=== PATIENT | male | born 1960 | race Caucasian/White ===

== ENCOUNTER 2018-01-17 16:19 | Emergency (ER) | payer MEDICARE, OTHER ==
[~2018-01-17] VITALS: Ht 188 cm; Wt 89.0 kg
[2018-01-17 16:51] LABS: BASOPHILS # (AUTO) 0.1 X10'3 (0-0.2); BASOPHILS % (AUTO) 0.7 % (0-1); EOSINOPHILS # (AUTO) 0.1 X10'3 (0-0.9); HEMATOCRIT 46.5 % (42.0-52.0); HEMOGLOBIN 15.8 g/dl (14.0-17.9); LYMPHOCYTES % (AUTO) 24.2 % (21-51); MEAN CORPUSCULAR HEMOGLOBIN 31.3 PG (27.0-31.0); MEAN CORPUSCULAR HGB CONC 33.9 % (33.0-36.5); MEAN CORPUSCULAR VOLUME 92.1 FL (78-98); MEAN PLATELET VOLUME 9.4 FL (7.4-10.4); MONOCYTES # (AUTO) 0.7 X10'3 (0-0.9); MONOCYTES % (AUTO) 8.2 % (2-12); NEUTROPHILS # (AUTO) 5.4 X10'3 (1.8-7.7); NEUTROPHILS % (AUTO) 65.9 % (42-75); PLATELET COUNT 204 X10'3 (140-440); RED BLOOD COUNT 5.05 X10'6 (4.70-6.10); RED CELL DISTRIBUTION WIDTH 13.9 % (11.5-14.5); WHITE BLOOD COUNT 8.1 X10'3 (4.5-11.0)
[2018-01-17 16:55] LABS: INR 1.1 INR; PARTIAL THROMBOPLASTIN TIME 26 SECONDS (22-32); PROTHROMBIN TIME 11.7 SECONDS (9.0-12.0)
[2018-01-17 16:59] LABS: ALANINE AMINOTRANSFERASE 39 U/L (12-78); ALBUMIN 3.8 G/DL (3.4-5.0); ALBUMIN/GLOBULIN RATIO 1.1 (1.1-1.5); ALKALINE PHOSPHATASE 62 IU/L (46-116); ANION GAP 11 (8-16); ASPARTATE AMINO TRANSFERASE 19 U/L (10-37); BILIRUBIN,TOTAL 0.7 MG/DL (0.1-1.0); BLOOD UREA NITROGEN 16 MG/DL (7-18); BUN/CREATININE RATIO 15.5 (5.4-32.0); CALCIUM 8.8 MG/DL (8.5-10.1); CHLORIDE 107 MMOL/L (99-107); CREATININE 1.03 MG/DL (0.60-1.10); GLUCOSE 110 MG/DL (70-104); POTASSIUM 3.9 MMOL/L (3.5-5.1); SODIUM 140 MMOL/L (135-145); TOTAL CARBON DIOXIDE 21.7 MMOL/L (24-32); TOTAL PROTEIN 7.4 G/DL (6.4-8.2); eGFR 74 ML/MIN
[2018-01-17 18:34] VITALS: BP 147/81
== END 2018-01-17 18:37 | disposition home or self-care (01) ==
LOC: ER 16:20
DX: R51 Headache (principal); I10 Essential (primary) hypertension; I25.2 Old myocardial infarction; F17.200 Nicotine dependence, unspecified, uncomplicated; Z88.2 Allergy status to sulfonamides
CPT/HCPCS: 36415; 71045; 80053; 84484; 85025; 85610; 85730; 99285

== ENCOUNTER 2019-01-28 17:25 | Observation (INO) | payer MEDICARE, OTHER ==
[~2019-01-28] VITALS: Ht 185.4 cm; Wt 100.0 kg
[2019-01-28 18:13] LABS: BASOPHILS # (AUTO) 0.1 X10'3 (0-0.2); BASOPHILS % (AUTO) 1.3 % (0-1); EOSINOPHILS # (AUTO) 0.2 X10'3 (0-0.9); HEMATOCRIT 41.1 % (42.0-52.0); HEMOGLOBIN 13.8 g/dl (14.0-17.9); LYMPHOCYTES # (AUTO) 2.6 X10'3 (1.1-4.8); LYMPHOCYTES % (AUTO) 33.8 % (21-51); MEAN CORPUSCULAR HEMOGLOBIN 30.6 PG (27.0-31.0); MEAN CORPUSCULAR HGB CONC 33.6 g/dL (33.0-36.5); MEAN CORPUSCULAR VOLUME 91.2 FL (78-98); MEAN PLATELET VOLUME 8.9 FL (7.4-10.4); MONOCYTES # (AUTO) 0.8 X10'3 (0-0.9); MONOCYTES % (AUTO) 10.4 % (2-12); NEUTROPHILS # (AUTO) 4.1 X10'3 (1.8-7.7); NEUTROPHILS % (AUTO) 52.5 % (42-75); PLATELET COUNT 193 X10'3 (140-440); RED BLOOD COUNT 4.51 X10'6 (4.70-6.10); RED CELL DISTRIBUTION WIDTH 13.3 % (11.5-14.5); WHITE BLOOD COUNT 7.8 X10'3 (4.5-11.0)
[2019-01-28 18:30] LABS: ALANINE AMINOTRANSFERASE 20 U/L (12-78); ALBUMIN 3.8 G/DL (3.4-5.0); ALBUMIN/GLOBULIN RATIO 1.4 (1.1-1.5); ALKALINE PHOSPHATASE 52 IU/L (46-116); ANION GAP 9 (8-16); ASPARTATE AMINO TRANSFERASE 14 U/L (10-37); BILIRUBIN,TOTAL 0.3 MG/DL (0.1-1.0); BLOOD UREA NITROGEN 15 MG/DL (7-18); BUN/CREATININE RATIO 19.2 (5.4-32.0); CALCIUM 8.9 MG/DL (8.5-10.1); CHLORIDE 106 MMOL/L (99-107); CREATININE 0.78 MG/DL (0.60-1.10); GLUCOSE 88 MG/DL (70-104); POTASSIUM 4.1 MMOL/L (3.5-5.1); SODIUM 140 MMOL/L (135-145); TOTAL CARBON DIOXIDE 25.5 MMOL/L (24-32); TOTAL PROTEIN 6.6 G/DL (6.4-8.2); eGFR > 90 ML/MIN
--- NOTE | 2019-01-28 18:32 | NUR ---
relieving RN for lunch, pt is resting quietly on jocelyn, daughter at bedside, pt c/o midsternal chest pain, nonradiating, +nausea "I think it is anxiety...i feel anxious" pt also c/o bilateral knee pain, has appt with [facility] 02/17/19, waiting for lab results
[2019-01-28 18:36] LABS: MAGNESIUM 2.2 MG/DL (1.5-2.4)
[2019-01-28 20:27] LABS: D-DIMER 1.62 MG/L FEU (0-0.50)
[2019-01-28 20:44] LABS: URINE AMPHETAMINE SCREEN NEGATIVE (Neg); URINE BARBITUATE SCREEN NEGATIVE (Neg); URINE BENZODIAZEPINES SCREEN POSITIVE (Neg); URINE CANNABINOID SCREEN NEGATIVE (Neg); URINE COCAINE SCREEN NEGATIVE (Neg); URINE METHADONE SCREEN NEGATIVE (Neg); URINE OPIATE SCREEN POSITIVE (Neg); URINE PHENCYCLIDINE SCREEN NEGATIVE (Neg)
[2019-01-28 20:53] LABS: CLARITY,URINE CLEAR (Clear); COLOR,URINE STRAW (Yellow); GLUCOSE, URINE NEGATIVE (Neg); KETONES,URINE NEGATIVE (Neg); LEUKOCYTE ESTERASE ,URINE NEGATIVE (Neg); NITRITES, URINE NEGATIVE (Neg); OCCULT BLOOD,URINE NEGATIVE (Neg); PROTEIN,URINE NEGATIVE (Neg); UROBILINOGEN,URINE 0.2 E.U/dL (0.2-1.0)
[2019-01-28 21:00] LABS: UA COLLECTION TYPE CLN CATCH MIDSTREAM
--- NOTE | 2019-01-28 21:10 | NUR ---
PATIENT STATES THAT HE IS GOING THRU A LOT OF STRESSORS IN HIS LIFE INCLUDING "BAD KNEES" HE WAS RECENTLY PRESCRIBED XANAX ON 01/17/[address] ABARCA
[2019-01-28] MEDS ORDERED: iohexol 350MG/ML 100ml bottle IV ONE (21:26)
[2019-01-28] MEDS ORDERED: aminophylline 250mg/10ml inj. IV PRN (21:45)
[2019-01-28] MEDS ORDERED: mag hydrox/Alum hydrox/simeth 30ml oral suspension PO PRN (21:45)
[2019-01-28] MEDS ORDERED: regadenoson 0.4mg/5ml syringe IV PRN (21:45)
[2019-01-28] MEDS ORDERED: magnesium 4gm in 100ml NS 100 ML IV PRN (21:45)
[2019-01-28] MEDS ORDERED: acetaminophen 325mg tablet PO PRN ×2 (21:45)
[2019-01-28] MEDS ORDERED: magnesium Cl slow-release 64mg tablet PO PRN (21:45)
[2019-01-28] MEDS ORDERED: magnesium 2GM in 50ml NS 50 ML IV PRN (21:45)
[2019-01-28] MEDS ORDERED: metoprolol tartrate 1mg/ml inj IV PRN (21:45)
[2019-01-28] MEDS ORDERED: magnesium hydroxide 30ml (MOM) UD suspension PO PRN (21:45)
[2019-01-28] MEDS ORDERED: ondansetron/PF 4mg/2ml inj IV PRN (21:45)
[2019-01-28] MEDS ORDERED: potassium Cl 20 mEq SR tablet PO PRN ×2 (21:45)
[2019-01-28] MEDS ORDERED: potassium Cl 40MEQ/NS 500ml 500 ML IV PRN ×2 (21:45)
[2019-01-28] MEDS ORDERED: nitroGLYCERIN 0.4mg SUBLingual tab SL PRN ×2 (21:45)
--- NOTE | 2019-01-28 22:06 | NUR ---
TO CT SCAN
[2019-01-29] VITALS (10 sets, daily range): BP systolic 112–178; BP diastolic 62–82
--- NOTE | 2019-01-29 03:21 | NUR ---
PT APPEARS TO BE SLEEPING, IN NO ACUTE DISTRESS.
[2019-01-29] MEDS ORDERED: enoxaparin 40mg/0.4ml syringe SQ SCH (08:00)
[2019-01-29] MEDS ORDERED: aspirin 81mg tablet.DR PO SCH (08:00)
[2019-01-29] MEDS ORDERED: K and/or MAG REPLACEMENT MC SCH (08:00)
[2019-01-29] MEDS ORDERED: PROP10TA10 PO (09:02)
[2019-01-29] MEDS ORDERED: VENL75CA61 PO (09:02)
[2019-01-29] MEDS ORDERED: MELO-102 PO (09:02)
[2019-01-29] MEDS ORDERED: BUSP7.5T4 PO (09:02)
[2019-01-29] MEDS ORDERED: PRIM50TA42 PO (09:02)
[2019-01-29] MEDS ORDERED: ALPR0.5T9 PO (09:02)
[2019-01-29] MEDS ORDERED: LISI-643 PO (09:02)
[2019-01-29] MEDS ORDERED: MULT-1062 PO (09:03)
[2019-01-29] MEDS ORDERED: NAPR220T67 PO (09:03)
[2019-01-29] MEDS ORDERED: NITR0.4T51 SL (09:04)
--- NOTE | 2019-01-29 09:15 | NUR ---
Pt arrived to unit. Introduced self to patient. Oriented pt to room, bed is low/locked/SRx2, call light in reach. Will continue to monitor. PT NPO at this time for Wandy.
[2019-01-29 09:18] LABS: BASOPHILS # (AUTO) 0.1 X10'3 (0-0.2); BASOPHILS % (AUTO) 0.9 % (0-1); EOSINOPHILS # (AUTO) 0.1 X10'3 (0-0.9); EOSINOPHILS % (AUTO) 1.4 % (0-6); HEMATOCRIT 42.5 % (42.0-52.0); HEMOGLOBIN 14.3 g/dl (14.0-17.9); LYMPHOCYTES # (AUTO) 1.9 X10'3 (1.1-4.8); LYMPHOCYTES % (AUTO) 26.7 % (21-51); MEAN CORPUSCULAR HEMOGLOBIN 30.8 PG (27.0-31.0); MEAN CORPUSCULAR HGB CONC 33.7 g/dL (33.0-36.5); MEAN CORPUSCULAR VOLUME 91.4 FL (78-98); MEAN PLATELET VOLUME 9.3 FL (7.4-10.4); MONOCYTES # (AUTO) 0.8 X10'3 (0-0.9); MONOCYTES % (AUTO) 10.8 % (2-12); NEUTROPHILS # (AUTO) 4.2 X10'3 (1.8-7.7); NEUTROPHILS % (AUTO) 60.2 % (42-75); PLATELET COUNT 197 X10'3 (140-440); RED BLOOD COUNT 4.65 X10'6 (4.70-6.10); RED CELL DISTRIBUTION WIDTH 13.6 % (11.5-14.5)
--- NOTE | 2019-01-29 09:45 | NUR ---
Pt off unit to [facility] for Lexiscan via WC in stable condition. Pt off floor.
[2019-01-29 09:50] LABS: ALBUMIN 3.7 G/DL (3.4-5.0); ANION GAP 9 (8-16); BLOOD UREA NITROGEN 15 MG/DL (7-18); BUN/CREATININE RATIO 17.4 (5.4-32.0); CHLORIDE 105 MMOL/L (99-107); CHOL/HDL RATIO 4.7 (0.00-4.99); CHOLESTEROL 191 MG/DL (0-200); CREATININE 0.86 MG/DL (0.60-1.10); GLUCOSE 107 MG/DL (70-104); HDL CHOLESTEROL 41 MG/DL (35-60); MAGNESIUM 2.2 MG/DL (1.5-2.4); POTASSIUM 4.2 MMOL/L (3.5-5.1); SODIUM 141 MMOL/L (135-145); TOTAL CARBON DIOXIDE 26.9 MMOL/L (24-32); TRIGLYCERIDES 169 MG/DL (20-135); eGFR > 90 ML/MIN
[2019-01-29 09:51] LABS: LDL CHOLESTEROL 121 MG/DL (50-100)
--- NOTE | 2019-01-29 09:55 | NUR ---
Notified Dr Jones of patient's elevated BP 178/80, no CP, HR 60. Pt currently off unit for Lexiscan. Per Dr Jones, please recheck BP when patient comes back to unit and notify
[2019-01-29] MEDS ORDERED: aminophylline inj. 10 ML IV ONE (09:56)
[2019-01-29] MEDS ORDERED: regadenoson 0.4mg/5ml syringe IV ONE (09:56)
[2019-01-29] MEDS ORDERED: atorvastatin 20mg tablet PO SCH (10:00)
--- NOTE | 2019-01-29 11:43 | NUR ---
PAGER ID: [phone] MESSAGE: Natalya Rayo, [id number] Carlos Banks BP 168/95, HR 81 s/p Trudy.
--- NOTE | 2019-01-29 12:38 | NUR ---
PAGER ID: [phone] MESSAGE: [id number] Carlos Banks resulted. Proceeding with discharge. Natalya, [phone]
--- NOTE | 2019-01-29 13:25 | NUR ---
Paged hospitalist "Nabila [phone]- [phone] May patient eat lunch with negative Lexiscan?"
--- NOTE | 2019-01-29 13:28 | NUR ---
Received callback from Dr. Jones, received orders for heart healthy diet and for nursing staff to walk patient to observe HR & SPO2. Plan to d/c patient if WNL.
[2019-01-29] MEDS ORDERED: ATOR20TA66 PO (13:29)
--- NOTE | 2019-01-29 14:34 | NUR ---
Paged hospitalist, "Nabila [phone] Please call (nonemergent)" Wish to make her aware that patient SPO2 and HR WNL. Asked for 1 x Meloxicam 15 mg po for pain.
[2019-01-29] MEDS ORDERED: naproxen 500mg tablet PO ONE (14:40)
--- NOTE | 2019-01-29 17:46 | NUR ---
2 IVs removed, catheters intact. Telemetry device removed, returned to tele. Pt discharged in stable condition via wheelchair. 2 bags of belongings including cell phone, wallet, and glasses. Discharge packet with patient. Discharged into the care of his daughter, left via private vehicle.
== END 2019-01-29 17:40 | disposition home or self-care (01) ==
LOC: ER 17:26 → ED HOLD 21:42 → PCU 3S 01-29 09:01
PROVIDERS: ADMIT Hospitalist; ATTEND Internal Medicine
DX: R07.2 Precordial pain (principal); I25.2 Old myocardial infarction; I10 Essential (primary) hypertension; E78.00 Pure hypercholesterolemia, unspecified; F41.9 Anxiety disorder, unspecified; F17.210 Nicotine dependence, cigarettes, uncomplicated; Z82.49 Family history of ischemic heart disease and other diseases of the circulatory system; Z86.711 Personal history of pulmonary embolism; Z86.718 Personal history of other venous thrombosis and embolism; Z95.1 Presence of aortocoronary bypass graft
CPT/HCPCS: 36415; 71045; 71275; 78452; 80048; 80053; 80061; 80305; 81003; 83735; 83880; 84484; 85025; 85379; 87070; 93005; 93017; 96372; 99284; A9500; G0378; J0280; Q9967; J1650

== ENCOUNTER 2019-03-16 22:50 | Emergency (ER) | payer MEDICARE ==
[~2019-03-16] VITALS: Ht 185.4 cm; Wt 96.4 kg
[~2019-03-16 22:50] MED LIST: ALPR0.5T9 PO; ATOR20TA66 PO; BUSP7.5T4 PO; LISI-643 PO; MULT-1062 PO; NAPR220T67 PO; NITR0.4T51 SL; PRIM50TA42 PO; VENL75CA61 PO
[2019-03-16] MEDS ORDERED: DICL100G15 TOP (23:13)
[2019-03-16] MEDS ORDERED: ketorolac trometh. 30mg/ml inj. IM ONE (23:15)
[2019-03-17 00:01] VITALS: BP 104/62
--- NOTE | 2019-03-17 00:18 | NUR ---
FELIPE FLETCHER CALLED FOR PT, HE WILL PAY FOR CAB [facility] ARE UNABLE TO PROVIDE TRANSPORT HOME.
== END 2019-03-17 01:44 | disposition home or self-care (01) ==
LOC: ER 22:50
DX: M25.561 Pain in right knee (principal); M25.562 Pain in left knee; E78.00 Pure hypercholesterolemia, unspecified; I10 Essential (primary) hypertension; I25.2 Old myocardial infarction; M19.90 Unspecified osteoarthritis, unspecified site; Z86.718 Personal history of other venous thrombosis and embolism; Z86.711 Personal history of pulmonary embolism; Z95.1 Presence of aortocoronary bypass graft; Z88.2 Allergy status to sulfonamides; Z79.899 Other long term (current) drug therapy
CPT/HCPCS: 96372; 99284; J1885

== ENCOUNTER 2019-03-31 13:26 | Observation (INO) | payer MEDICARE, OTHER ==
[~2019-03-31] VITALS: Ht 188 cm; Wt 98.0 kg
[~2019-03-31 13:26] MED LIST changes: +DICL100G15 TOP
[2019-03-31] MEDS ORDERED: normal saline 1000ML IV soln IVB ONE (13:30)
--- NOTE | 2019-03-31 13:56 | NUR ---
REPOPRT TO PRIMARY RN BELINDA
--- NOTE | 2019-03-31 14:05 | NUR ---
UPDATED DR. AMAYA THAT PT FOUND DOWN PER [facility]. O2 AND ST CATH AT BEDSIDE.
[2019-03-31 14:06] LABS: BASOPHILS # (AUTO) 0.1 X10'3 (0-0.2); EOSINOPHILS # (AUTO) 0.1 X10'3 (0-0.9); HEMATOCRIT 41.1 % (42.0-52.0); HEMOGLOBIN 13.9 g/dl (14.0-17.9); LYMPHOCYTES % (AUTO) 30.9 % (21-51); MEAN CORPUSCULAR HEMOGLOBIN 31.2 PG (27.0-31.0); MEAN CORPUSCULAR HGB CONC 33.7 g/dL (33.0-36.5); MEAN CORPUSCULAR VOLUME 92.4 FL (78-98); MONOCYTES # (AUTO) 0.6 X10'3 (0-0.9); MONOCYTES % (AUTO) 9.6 % (2-12); NEUTROPHILS # (AUTO) 3.6 X10'3 (1.8-7.7); NEUTROPHILS % (AUTO) 56.5 % (42-75); PLATELET COUNT 192 X10'3 (140-440); RED BLOOD COUNT 4.44 X10'6 (4.70-6.10); RED CELL DISTRIBUTION WIDTH 13.5 % (11.5-14.5); WHITE BLOOD COUNT 6.4 X10'3 (4.5-11.0)
--- NOTE | 2019-03-31 14:06 | NUR ---
#[phone]. PT DAUGHTER CAME HOME, KNEW HE SLEEPING ON THE COUCH, SHE HEARD A THUD, HE FALL ON HIS FACE. UNRESPONSIVE, BUT BREATHING. 911
[2019-03-31] MEDS ORDERED: PROP10TA10 PO (14:24)
[2019-03-31] MEDS ORDERED: MELO-102 PO (14:24)
[2019-03-31] MEDS ORDERED: ATOR20TA66 PO (14:24)
--- NOTE | 2019-03-31 14:24 | NUR ---
got disconnected from poison control, calling back
[2019-03-31 14:27] LABS: ACETAMINOPHEN < 2.0 UG/ML (10-30); ALANINE AMINOTRANSFERASE 25 U/L (12-78); ALBUMIN 3.5 G/DL (3.4-5.0); ALBUMIN/GLOBULIN RATIO 1.3 (1.1-1.5); ALKALINE PHOSPHATASE 46 IU/L (46-116); ANION GAP 5 (8-16); ASPARTATE AMINO TRANSFERASE 15 U/L (10-37); BILIRUBIN,TOTAL 0.4 MG/DL (0.1-1.0); BLOOD UREA NITROGEN 10 MG/DL (7-18); BUN/CREATININE RATIO 11.5 (5.4-32.0); CALCIUM 8.8 MG/DL (8.5-10.1); CHLORIDE 108 MMOL/L (99-107); CREATININE 0.87 MG/DL (0.60-1.10); ETHANOL < 0.010 GM/DL (0.0-0.010); GLUCOSE 89 MG/DL (70-104); SODIUM 141 MMOL/L (135-145); TOTAL CARBON DIOXIDE 27.6 MMOL/L (24-32); TOTAL PROTEIN 6.3 G/DL (6.4-8.2); eGFR 90 ML/MIN
--- NOTE | 2019-03-31 14:27 | NUR ---
past peek effects of xanax, mobic precaution, get baseline cbc, tylenol, asa, bc category nsaids, metabolic acidosis, gi, kidney damage, repeat cbc in 4 hours. Fluids, 1 liters. Keny, pharmacist.
--- NOTE | 2019-03-31 14:32 | NUR ---
medications back to pt daughter.Pt is currently living with temporary living.
[2019-03-31 14:55] LABS: URINE AMPHETAMINE SCREEN NEGATIVE (Neg); URINE BARBITUATE SCREEN NEGATIVE (Neg); URINE BENZODIAZEPINES SCREEN POSITIVE (Neg); URINE CANNABINOID SCREEN NEGATIVE (Neg); URINE COCAINE SCREEN NEGATIVE (Neg); URINE METHADONE SCREEN NEGATIVE (Neg); URINE OPIATE SCREEN NEGATIVE (Neg); URINE PHENCYCLIDINE SCREEN NEGATIVE (Neg)
[2019-03-31] MEDS ORDERED: acetaminophen 325mg tablet PO PRN ×4 (15:30→15:35)
[2019-03-31] MEDS ORDERED: magnesium hydroxide 30ml (MOM) UD suspension PO PRN ×4 (15:30→15:35)
[2019-03-31] MEDS ORDERED: mag hydrox/Alum hydrox/simeth 30ml oral suspension PO PRN ×4 (15:30→15:35)
[2019-03-31] MEDS ORDERED: ondansetron/PF 4mg/2ml inj IV PRN ×4 (15:30→15:35)
--- NOTE | 2019-03-31 15:32 | NUR ---
pt awake, talking, tearful. reports first time trying to kill himself. Pt is living with daughter temporary, lost his house.
[2019-03-31] MEDS ORDERED: morphine 2 MG/ML inj. syringe IV PRN ×2 (15:35)
[2019-03-31] MEDS: dextrose 5%-1/2 normal saline 1,000 ML IV SCH (16:37)
[2019-03-31 17:00] LABS: BASOPHILS # (AUTO) 0.1 X10'3 (0-0.2); BASOPHILS % (AUTO) 0.7 % (0-1); EOSINOPHILS # (AUTO) 0.2 X10'3 (0-0.9); EOSINOPHILS % (AUTO) 1.8 % (0-6); HEMATOCRIT 40.5 % (42.0-52.0); HEMOGLOBIN 13.6 g/dl (14.0-17.9); LYMPHOCYTES # (AUTO) 2.1 X10'3 (1.1-4.8); LYMPHOCYTES % (AUTO) 21.9 % (21-51); MEAN CORPUSCULAR HEMOGLOBIN 31.1 PG (27.0-31.0); MEAN CORPUSCULAR HGB CONC 33.7 g/dL (33.0-36.5); MEAN CORPUSCULAR VOLUME 92.1 FL (78-98); MEAN PLATELET VOLUME 8.9 FL (7.4-10.4); MONOCYTES # (AUTO) 0.9 X10'3 (0-0.9); MONOCYTES % (AUTO) 9.3 % (2-12); NEUTROPHILS # (AUTO) 6.4 X10'3 (1.8-7.7); NEUTROPHILS % (AUTO) 66.3 % (42-75); PLATELET COUNT 192 X10'3 (140-440); RED BLOOD COUNT 4.39 X10'6 (4.70-6.10); RED CELL DISTRIBUTION WIDTH 13.7 % (11.5-14.5); WHITE BLOOD COUNT 9.7 X10'3 (4.5-11.0)
[2019-03-31 17:17] LABS: ACETAMINOPHEN < 2.0 UG/ML (10-30)
[2019-03-31] MEDS: naproxen 500mg tablet PO SCH (17:30)
--- NOTE | 2019-03-31 18:22 | NUR ---
#[phone] VIVIAN ZIMMERMAN, DAUGHTER CALLED. UPDATED ON PLAN OF CARE. WILL HERE IN MORNING.
--- NOTE | 2019-03-31 18:39 | NUR ---
Received report from ALEC Esposito from ER. Pending arrival to floor.
[2019-03-31 19:02] VITALS: BP 162/75
[2019-03-31] MEDS ORDERED: pneumococcal 23-VAL P-sac vacc 25 mcg/0.5ml vial IMVAC ONE (19:30)
[2019-03-31 20:21] VITALS: BP 127/64
[2019-03-31] MEDS: busPIRone 15mg tablet PO SCH (20:21)
[2019-03-31] MEDS: propranolol 10mg tablet PO SCH (20:21)
[2019-03-31] MEDS: HYDROcodone/acetaminophen 5mg/325mg tablet PO PRN (20:21)
[2019-03-31 22:00] VITALS: BP 127/73
[2019-04-01] MEDS: dextrose 5%-1/2 normal saline 1,000 ML IV SCH (01:49)
[2019-04-01] MEDS: HYDROcodone/acetaminophen 5mg/325mg tablet PO PRN ×4 (04:19→21:55)
[2019-04-01 05:47] LABS: BASOPHILS # (AUTO) 0.1 X10'3 (0-0.2); BASOPHILS % (AUTO) 0.8 % (0-1); EOSINOPHILS # (AUTO) 0.2 X10'3 (0-0.9); EOSINOPHILS % (AUTO) 2.9 % (0-6); HEMATOCRIT 37.8 % (42.0-52.0); HEMOGLOBIN 12.8 g/dl (14.0-17.9); LYMPHOCYTES # (AUTO) 1.9 X10'3 (1.1-4.8); LYMPHOCYTES % (AUTO) 27.4 % (21-51); MEAN CORPUSCULAR HEMOGLOBIN 31.2 PG (27.0-31.0); MEAN CORPUSCULAR HGB CONC 33.9 g/dL (33.0-36.5); MEAN CORPUSCULAR VOLUME 92.1 FL (78-98); MEAN PLATELET VOLUME 8.9 FL (7.4-10.4); MONOCYTES # (AUTO) 0.7 X10'3 (0-0.9); MONOCYTES % (AUTO) 10.4 % (2-12); NEUTROPHILS # (AUTO) 4.2 X10'3 (1.8-7.7); NEUTROPHILS % (AUTO) 58.5 % (42-75); PLATELET COUNT 173 X10'3 (140-440); RED BLOOD COUNT 4.11 X10'6 (4.70-6.10); RED CELL DISTRIBUTION WIDTH 13.6 % (11.5-14.5); WHITE BLOOD COUNT 7.1 X10'3 (4.5-11.0)
[2019-04-01 06:00] VITALS: BP 139/62
--- NOTE | 2019-04-01 06:18 | NUR ---
Patient in room ORTHO 4009. I have received report from Nafisa Poole RN and had the opportunity to ask questions and assume patient care.
--- NOTE | 2019-04-01 06:23 | NUR ---
Problems reprioritized. Patient report given, questions answered & plan of care reviewed with ALEC Doan.
[2019-04-01 07:03] LABS: ALANINE AMINOTRANSFERASE 23 U/L (12-78); ALBUMIN/GLOBULIN RATIO 1.1 (1.1-1.5); ALKALINE PHOSPHATASE 43 IU/L (46-116); ANION GAP 10 (8-16); ASPARTATE AMINO TRANSFERASE 14 U/L (10-37); BILIRUBIN,TOTAL 0.3 MG/DL (0.1-1.0); BLOOD UREA NITROGEN 13 MG/DL (7-18); BUN/CREATININE RATIO 14.8 (5.4-32.0); CALCIUM 8.3 MG/DL (8.5-10.1); CHLORIDE 107 MMOL/L (99-107); CREATININE 0.88 MG/DL (0.60-1.10); GLUCOSE 104 MG/DL (70-104); SODIUM 141 MMOL/L (135-145); TOTAL PROTEIN 5.7 G/DL (6.4-8.2); eGFR 88 ML/MIN
[2019-04-01] MEDS: busPIRone 15mg tablet PO SCH ×2 (08:00→19:36)
[2019-04-01] MEDS: primidone 50mg tablet PO SCH ×2 (08:00→09:13)
[2019-04-01] MEDS: venlafaxine XR 75mg capsule (Q24H) PO SCH (08:00)
[2019-04-01] MEDS: propranolol 10mg tablet PO SCH ×2 (08:02→19:36)
[2019-04-01] MEDS: naproxen 500mg tablet PO SCH ×2 (08:02→16:48)
[2019-04-01] MEDS: atorvastatin 20mg tablet PO SCH (08:02)
[2019-04-01] MEDS: lisinopril 10 MG tablet PO SCH (08:03)
[2019-04-01 09:50] VITALS: BP 134/59
--- NOTE | 2019-04-01 14:30 | NUR ---
Paged social welfare administrator regarding patient being transferred to Behavioral Health, still waiting for response. Also left message with Heather on Behavioral Health and left a message, waiting for call back.
[2019-04-01 18:00] VITALS: BP 159/73
--- NOTE | 2019-04-01 18:05 | NUR ---
Problems reprioritized. Patient report given, questions answered & plan of care reviewed with Nafisa Poole RN.
--- NOTE | 2019-04-01 18:23 | NUR ---
Patient in room ORTHO 4020B. I have received report from ALEC Doan and had the opportunity to ask questions and assume patient care.
--- NOTE | 2019-04-01 21:04 | NUR ---
Marco Antonio from [facility] here to evaluate patient for possible psych needs.
[2019-04-01 22:00] VITALS: BP 151/82
--- NOTE | 2019-04-01 22:32 | NUR ---
Mental Health evaluated patient and recommended that he be admitted under a 5150. Dr Colvin was notified, he said that the doctor will address it in the AM as long as he has a sitter and does not try to leave.
[2019-04-02] MEDS: HYDROcodone/acetaminophen 5mg/325mg tablet PO PRN ×2 (04:05→08:49)
[2019-04-02 06:00] VITALS: BP 122/62
--- NOTE | 2019-04-02 06:10 | NUR ---
Patient in room ORTHO 4020. I have received report from DEVON MICHAEL and had the opportunity to ask questions and assume patient care.
--- NOTE | 2019-04-02 06:22 | NUR ---
Problems reprioritized. Patient report given, questions answered & plan of care reviewed with ALEC Hudson.
[2019-04-02 07:11] LABS: BASOPHILS % (AUTO) 0.5 % (0-1); EOSINOPHILS # (AUTO) 0.2 X10'3 (0-0.9); HEMATOCRIT 39.8 % (42.0-52.0); HEMOGLOBIN 13.6 g/dl (14.0-17.9); LYMPHOCYTES # (AUTO) 1.3 X10'3 (1.1-4.8); LYMPHOCYTES % (AUTO) 12.8 % (21-51); MEAN CORPUSCULAR HEMOGLOBIN 31.3 PG (27.0-31.0); MEAN CORPUSCULAR HGB CONC 34.3 g/dL (33.0-36.5); MEAN CORPUSCULAR VOLUME 91.2 FL (78-98); MEAN PLATELET VOLUME 9.3 FL (7.4-10.4); MONOCYTES # (AUTO) 0.9 X10'3 (0-0.9); MONOCYTES % (AUTO) 8.3 % (2-12); NEUTROPHILS # (AUTO) 7.8 X10'3 (1.8-7.7); NEUTROPHILS % (AUTO) 76.4 % (42-75); PLATELET COUNT 176 X10'3 (140-440); RED BLOOD COUNT 4.36 X10'6 (4.70-6.10); RED CELL DISTRIBUTION WIDTH 13.1 % (11.5-14.5); WHITE BLOOD COUNT 10.2 X10'3 (4.5-11.0)
[2019-04-02] MEDS: venlafaxine XR 75mg capsule (Q24H) PO SCH (07:11)
[2019-04-02] MEDS: naproxen 500mg tablet PO SCH (07:11)
[2019-04-02] MEDS: lisinopril 10 MG tablet PO SCH (07:11)
[2019-04-02] MEDS: primidone 50mg tablet PO SCH (07:12)
[2019-04-02] MEDS: busPIRone 15mg tablet PO SCH (07:12)
[2019-04-02] MEDS: propranolol 10mg tablet PO SCH (07:12)
[2019-04-02] MEDS: atorvastatin 20mg tablet PO SCH (07:12)
[2019-04-02 07:31] LABS: ALANINE AMINOTRANSFERASE 22 U/L (12-78); ALBUMIN 3.3 G/DL (3.4-5.0); ALBUMIN/GLOBULIN RATIO 1.1 (1.1-1.5); ALKALINE PHOSPHATASE 55 IU/L (46-116); ANION GAP 9 (8-16); ASPARTATE AMINO TRANSFERASE 15 U/L (10-37); BILIRUBIN,TOTAL 0.5 MG/DL (0.1-1.0); BLOOD UREA NITROGEN 12 MG/DL (7-18); BUN/CREATININE RATIO 15.6 (5.4-32.0); CALCIUM 8.4 MG/DL (8.5-10.1); CHLORIDE 107 MMOL/L (99-107); CREATININE 0.77 MG/DL (0.60-1.10); GLUCOSE 106 MG/DL (70-104); POTASSIUM 3.8 MMOL/L (3.5-5.1); SODIUM 141 MMOL/L (135-145); TOTAL CARBON DIOXIDE 25.5 MMOL/L (24-32); TOTAL PROTEIN 6.2 G/DL (6.4-8.2); eGFR > 90 ML/MIN
[2019-04-02 10:00] VITALS: BP 139/81
[2019-04-02] MEDS ORDERED: HYDROcodone/acetaminophen 10/325mg tab PO ONE (10:05)
[2019-04-02] MEDS ORDERED: HYDROcodone/acetaminophen 10/325mg tab PO PRN ×2 (10:05)
--- NOTE | 2019-04-02 11:48 | NUR ---
PAGER ID: [phone] MESSAGE: NARCISA [phone] RE: SEVERIANO [id number] PT GOING CB AT 1300, DOES HE NEED PAIN MEDS ON DC MED[facility]? NONE ON THERE.
--- NOTE | 2019-04-02 13:00 | NUR ---
PATIENT DISCHARGED. BROUGHT DOWN BY WHEELCHAIR TO [facility]. REPORT GIVEN TO ONCOMING RN.
[2019-04-02] MEDS ORDERED: DICL100G30 TOP (14:35)
== END 2019-04-02 13:00 | disposition other institution, planned readmission (95) ==
LOC: ER 13:26 → EDBEDREQ 18:19 → ORTHO 4S 18:59 → INTOOBSV 18:59 → CMPBEDREQ 19:42 → ORTHO 4S 21:03
PROVIDERS: ADMIT Internal Medicine; ATTEND Internal Medicine
DX: T42.4X2A Poisoning by benzodiazepines, intentional self-harm, initial encounter (principal); F32.9 Major depressive disorder, single episode, unspecified; F41.9 Anxiety disorder, unspecified; I10 Essential (primary) hypertension; E78.00 Pure hypercholesterolemia, unspecified; E78.5 Hyperlipidemia, unspecified; F17.210 Nicotine dependence, cigarettes, uncomplicated; Y93.89 Activity, other specified; Y92.009 Unspecified place in unspecified non-institutional (private) residence as the place of occurrence of the external cause; Z79.899 Other long term (current) drug therapy; Z95.1 Presence of aortocoronary bypass graft; Z23 Encounter for immunization
CPT/HCPCS: 36415; 71045; 80053; 80305; 80320; 80329; 82948; 85025; 87070; 90471; 90732; 93005; 96374; 99284; G0378; J2270; 96365; 99285

== ENCOUNTER 2019-07-22 17:09 | Emergency (ER) | payer MEDICARE, MEDICAID ==
[~2019-07-22] VITALS: Ht 185.4 cm; Wt 97.3 kg
[~2019-07-22 17:09] MED LIST changes: +BUS15T PO; -BUSP7.5T4 PO; -DICL100G15 TOP; +DICL100G30 TOP; +DULO30CA52 PO; +HYDR-3686 PO; +MELO-102 PO; -NITR0.4T51 SL; +PRIM50TA3 PO; -PRIM50TA42 PO; +PROP10TA10 PO; +TRAZ-251 PO; -VENL75CA61 PO
[2019-07-22] MEDS ORDERED: DULO60CA65 PO (17:54)
[2019-07-22] MEDS ORDERED: ARIP2TAB20 PO (17:54)
[2019-07-22] MEDS ORDERED: BUSP30TA2 PO (17:54)
[2019-07-22] MEDS ORDERED: TRAZ-251 PO (17:55)
[2019-07-22] MEDS ORDERED: BENZ1TAB8 PO (17:55)
[2019-07-22] MEDS ORDERED: HYDR50TA65 PO (17:57)
[2019-07-22] MEDS ORDERED: ALPR0.5T8 PO (17:58)
[2019-07-22 19:05] LABS: BASOPHILS # (AUTO) 0.1 X10'3 (0-0.2); BASOPHILS % (AUTO) 0.8 % (0-1); EOSINOPHILS # (AUTO) 0.2 X10'3 (0-0.9); EOSINOPHILS % (AUTO) 2.1 % (0-6); HEMATOCRIT 38.7 % (42.0-52.0); LYMPHOCYTES # (AUTO) 1.5 X10'3 (1.1-4.8); LYMPHOCYTES % (AUTO) 13.9 % (21-51); MEAN CORPUSCULAR HEMOGLOBIN 31.1 PG (27.0-31.0); MEAN CORPUSCULAR HGB CONC 33.5 g/dL (33.0-36.5); MEAN CORPUSCULAR VOLUME 92.6 FL (78-98); MEAN PLATELET VOLUME 9.2 FL (7.4-10.4); MONOCYTES # (AUTO) 0.9 X10'3 (0-0.9); MONOCYTES % (AUTO) 8.4 % (2-12); NEUTROPHILS # (AUTO) 8.3 X10'3 (1.8-7.7); NEUTROPHILS % (AUTO) 74.8 % (42-75); PLATELET COUNT 184 X10'3 (140-440); RED BLOOD COUNT 4.17 X10'6 (4.70-6.10); RED CELL DISTRIBUTION WIDTH 13.7 % (11.5-14.5); WHITE BLOOD COUNT 11.1 X10'3 (4.5-11.0)
--- NOTE | 2019-07-22 19:14 | NUR ---
PT DAUGHTER VIVIAN ZIMMERMAN WOULD LIKE THE MD TO CALL WITH AN UPDATE. [phone]
[2019-07-22 19:16] LABS: CLARITY,URINE CLEAR (Clear); COLOR,URINE YELLOW (Yellow); GLUCOSE, URINE NEGATIVE (Neg); KETONES,URINE NEGATIVE (Neg); LEUKOCYTE ESTERASE ,URINE NEGATIVE (Neg); NITRITES, URINE NEGATIVE (Neg); OCCULT BLOOD,URINE NEGATIVE (Neg); PROTEIN,URINE NEGATIVE (Neg); UROBILINOGEN,URINE 0.2 E.U/dL (0.2-1.0)
[2019-07-22 19:17] LABS: ALANINE AMINOTRANSFERASE 26 U/L (12-78); ALBUMIN 3.8 G/DL (3.4-5.0); ALBUMIN/GLOBULIN RATIO 1.3 (1.1-1.5); ALKALINE PHOSPHATASE 57 IU/L (46-116); ANION GAP 9 (8-16); ASPARTATE AMINO TRANSFERASE 20 U/L (10-37); BILIRUBIN,TOTAL 0.5 MG/DL (0.1-1.0); BLOOD UREA NITROGEN 15 MG/DL (7-18); BUN/CREATININE RATIO 17.6 (5.4-32.0); CALCIUM 8.7 MG/DL (8.5-10.1); CHLORIDE 107 MMOL/L (99-107); CREATININE 0.85 MG/DL (0.60-1.10); GLUCOSE 100 MG/DL (70-104); POTASSIUM 3.6 MMOL/L (3.5-5.1); SODIUM 142 MMOL/L (135-145); TOTAL CARBON DIOXIDE 25.8 MMOL/L (24-32); TOTAL PROTEIN 6.8 G/DL (6.4-8.2); eGFR > 90 ML/MIN
[2019-07-22 19:18] LABS: URINE AMPHETAMINE SCREEN NEGATIVE (Neg); URINE BARBITUATE SCREEN NEGATIVE (Neg); URINE BENZODIAZEPINES SCREEN NEGATIVE (Neg); URINE CANNABINOID SCREEN NEGATIVE (Neg); URINE COCAINE SCREEN NEGATIVE (Neg); URINE METHADONE SCREEN NEGATIVE (Neg); URINE OPIATE SCREEN NEGATIVE (Neg); URINE PHENCYCLIDINE SCREEN NEGATIVE (Neg)
[2019-07-22 19:19] LABS: UA COLLECTION TYPE URINAL
--- NOTE | 2019-07-22 19:47 | NUR ---
Pt given dinner. Behavior appropriate and calm. Report called to Lucy MICHAEL, and patient transferred to [facility].
--- NOTE | 2019-07-22 20:10 | NUR ---
[facility]
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
[2019-07-22] MEDS ORDERED: ALPRAZolam 0.5mg tablet PO PRN (20:30)
--- NOTE | 2019-07-22 20:32 | NUR ---
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 She believes he has dementia. She reports that he has been increasingly confused over recent months and increasingly hostile for the past several days. She reports that he has been hallucinating and saw a baby in the corner of the room. She also stated he tried to pry open the tool box of his car because he believed that someone had a placed a baby there. He also has been seeing people in the yard who are not there.
[2019-07-22] MEDS ORDERED: naproxen sodium 220mg tablet PO PRN (20:35)
[2019-07-22] MEDS ORDERED: traZODone 50mg tablet PO SCH (21:00)
[2019-07-22] MEDS: hydrOXYzine 25 MG tablet PO SCH (21:23)
--- NOTE | 2019-07-22 21:52 | NUR ---
The patient is resting on his bed. He was compliant with taking his HS medications
--- NOTE | 2019-07-22 22:28 | NUR ---
The patient is queitly talking to himself
--- NOTE | 2019-07-23 00:41 | NUR ---
The patient appears to be sleeping
--- NOTE | 2019-07-23 01:49 | NUR ---
The patient appears to be asleep
--- NOTE | 2019-07-23 04:07 | NUR ---
THe patient appears to be sleeping
[2019-07-23 05:49] VITALS: BP_DIAS 68
--- NOTE | 2019-07-23 06:37 | NUR ---
Patient sleeping supine. No distress observed. Continue to monitor.
[2019-07-23] MEDS ORDERED: duloxetine 30mg CAPSULE.DR PO SCH (08:00)
[2019-07-23] MEDS ORDERED: multivitamins, therapeutics tablet PO SCH (08:00)
[2019-07-23] MEDS ORDERED: MOBIC 15 MG PO SCH (08:00)
[2019-07-23] MEDS ORDERED: lisinopril 10 MG tablet PO SCH (08:00)
[2019-07-23] MEDS ORDERED: busPIRone 15mg tablet PO SCH (08:00)
[2019-07-23] MEDS ORDERED: atorvastatin 20mg tablet PO SCH (08:00)
[2019-07-23] MEDS ORDERED: benztropine 1mg tablet PO SCH (08:00)
[2019-07-23] MEDS ORDERED: propranolol 10mg tablet PO SCH (08:00)
[2019-07-23 08:21] VITALS: BP_SYST 119
[2019-07-23] MEDS: hydrOXYzine 25 MG tablet PO SCH ×2 (08:22→13:55)
--- NOTE | 2019-07-23 08:25 | NUR ---
Patient eating breakfast. RN had to convince patient to take his medication. Patient mistaking a tech who walked by as his daughter. Patient appears confused. RN reassured patient we are here to help him. Continue to monitor.
[2019-07-23] MEDS ORDERED: LORazepam 1 MG tablet PO ONE (08:55)
--- NOTE | 2019-07-23 09:00 | NUR ---
Patient attempted to elope at 0838 through the main Overflow entrance and then pt took a left through [facility]. Patient ended up in the hallway and into the administration a hallway. Patient brought back by Security and Techs in wheelchair. RN gave patient 2 mg Ativan PO for anxiety. Pt took medication without any problem. Patient placed on a 1 to 1. Continue to monitor.
--- NOTE | 2019-07-23 10:55 | NUR ---
Patient is up and down and difficult to reason with. Continue to monitor.
--- NOTE | 2019-07-23 13:15 | NUR ---
Patient eating lunch. No distress observed. Continue to monitor.
[2019-07-23] MEDS ORDERED: mag hydrox/Alum hydrox/simeth 30ml oral suspension PO ONE (14:50)
--- NOTE | 2019-07-23 15:13 | NUR ---
Patient reclining in bed. Sitter at side. RN gave patient Maalox for indigestion. No distress observed. Continue to monitor.
== END 2019-07-23 16:58 | disposition home or self-care (01) ==
LOC: ER 17:10
DX: R45.851 Suicidal ideations (principal); E78.00 Pure hypercholesterolemia, unspecified; I10 Essential (primary) hypertension; I25.2 Old myocardial infarction; M19.90 Unspecified osteoarthritis, unspecified site; G89.29 Other chronic pain; Z65.4 Victim of crime and terrorism; Z86.718 Personal history of other venous thrombosis and embolism; Z86.711 Personal history of pulmonary embolism; Z95.1 Presence of aortocoronary bypass graft; Z88.2 Allergy status to sulfonamides; Z79.899 Other long term (current) drug therapy
CPT/HCPCS: 36415; 80053; 80305; 81003; 85025; 99285; Z7610

== ENCOUNTER 2019-07-23 14:44 | Inpatient (IN) | payer MEDICARE, MEDICAID ==
[~2019-07-23] VITALS: Ht 185.4 cm; Wt 94.0 kg
[~2019-07-23 14:44] MED LIST changes: +ALPR0.5T8 PO; -ALPR0.5T9 PO; +ARIP2TAB20 PO; +BENZ1TAB8 PO; -BUS15T PO; +BUSP30TA2 PO; -DICL100G30 TOP; -DULO30CA52 PO; +DULO60CA65 PO; -HYDR-3686 PO; +HYDR50TA65 PO; -PRIM50TA3 PO
[2019-07-23] MEDS ORDERED: mag hydrox/Alum hydrox/simeth 30ml oral suspension PO PRN (17:10)
[2019-07-23] MEDS ORDERED: acetaminophen 325mg tablet PO PRN ×2 (17:10)
[2019-07-23] MEDS ORDERED: hydrOXYzine 25 MG tablet PO PRN (17:10)
[2019-07-23] MEDS ORDERED: loperamide 2mg capsule PO PRN (17:10)
[2019-07-23] MEDS ORDERED: magnesium hydroxide 30ml (MOM) UD suspension PO PRN (17:10)
[2019-07-23 17:36] VITALS: BP 154/82
--- NOTE | 2019-07-23 18:20 | NUR ---
Pt admitted from ER overflow to [facility] room 326A at 1705, transported in w/c accompanied by PCT and 2 security guards. Safety search performed by Karly and Natalya LESTERs as well as Ninfa from security. 2 RN skin check done, pt showered and changed into clean green hospital scrubs. Pt was BIB [employer] on 07/22/13 after daughter called the police on him for being angry and aggressive, making violent threats to blow up the house, he also had threatened to jump in front of a moving vehicle. Pt is confused, oriented only to self. 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 He made some statements about not liking the way his daughter was acting, "flirting" he mimicked her in a female voice then he stated as though talking to his daughter, "I'm going to drown you in that truck." Pt requested and injection for his knees, he needed redirected several times.
[2019-07-23 19:00] VITALS: BP 132/84
--- NOTE | 2019-07-23 22:20 | NUR ---
Nursing Progress Note:Alvarado Banks Legal hold:5150 DTS/GD Client on involuntary status for DTS Report received from ALEC Pacheco with use of SBAR. Why are they here: Pt admitted from ER overflow to [facility] room 326A at 1705, transported in w/c accompanied by PCT and 2 security guards. Safety search performed by Karly and Natalya brine well operator as well as Ninfa from security. 2 RN skin check done, pt showered and changed into clean green hospital scrubs. Pt was BIB [employer] on 07/22/13 after daughter called the police on him for being angry and aggressive, making violent threats to blow up the house, he also had threatened to jump in front of a moving vehicle. Pt is confused, oriented only to self. 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 He made some statements about not liking the way his daughter was acting, "flirting" he mimicked her in a female voice then he stated as though talking to his daughter, "I'm going to drown you in that truck." Pt requested and injection for his knees, he needed redirected several times. S/I, H/I: Patient denies. A/VH: Responds to internal stimuli. Sleep: None at the time of this writing. ADL's: Independent with assistance. Group attendance: Not on day shift. Were Meds taken: Yes. Any med S/E: None. Mental Status Exam Appearance: Dressed in green scrubs, disheveled. Eye contact: Intermittent. Behavior: Cooperative, delusional Speech: Soft tone, normal rate and rhythm. Mood: Paranoid. Affect: Flat Thought process: Disorganized, doesn't comprehend surroundings. Thought Content: Delusional and paranoid. Cognition: Oriented to person. Insight: Poor Judgment: Poor Interventions PRN's used: Atarax Therapeutic interventions: 1:1 assessment, establishment of rapport, maintained safe therapeutic milieu, provided active listening with positive feedback, provided medication education, monitored for change in behavior and provided needed interventions. Q 15 minute safety checks. Restraints/seclusion/emergency medication: N/A Justification of Continued Inpatient Treatment: Continued therapeutic support and medication management needed to provide stabilization, prevent decompensation, improve coping mechanisms decreasing risk to patient and re-admittance. Chief Complaint
--- NOTE | 2019-07-24 00:48 | NUR ---
Nursing Progress Note:Alvarado Banks Legal hold:5150 DTS/GD Client on involuntary status for DTS Report received from ALEC Pacheco with use of SBAR. Why are they here: Pt admitted from ER overflow to [facility] room 326A at 1705, transported in w/c accompanied by PCT and 2 security guards. Safety search performed by Karly and Natalya camp housekeeper as well as Ninfa from security. 2 RN skin check done, pt showered and changed into clean green hospital scrubs. Pt was BIB [employer] on 07/22/13 after daughter called the police on him for being angry and aggressive, making violent threats to blow up the house, he also had threatened to jump in front of a moving vehicle. Pt is confused, oriented only to self. 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 He made some statements about not liking the way his daughter was acting, "flirting" he mimicked her in a female voice then he stated as though talking to his daughter, "I'm going to drown you in that truck." Pt requested and injection for his knees, he needed redirected several times. Assessment What happened this shift: Patient is sitting in hallway. He exhibits confusion and paranoia, he exhibits anxiety. Patient states he hears voices, his and dog talking to him. Patient denies H/I or S/I. He is responding to internal stimuli. Patient is disheveled. Patient is redirected to his room. He was administered Atarax for his anxiety with good effect. Patient is advised that he is in a safe pleae. S/I, H/I: Patient denies. A/VH: Responds to internal stimuli. Sleep: None at the time of this writing. ADL's: Independent with assistance. Group attendance: Not on day shift. Were Meds taken: Yes. Any med S/E: None. Mental Status Exam Appearance: Dressed in green scrubs, disheveled. Eye contact: Intermittent. Behavior: Cooperative, delusional Speech: Soft tone, normal rate and rhythm. Mood: Paranoid. Affect: Flat Thought process: Disorganized, doesn't comprehend surroundings. Thought Content: Delusional and paranoid. Cognition: Oriented to person. Insight: Poor Judgment: Poor Interventions PRN's used: Atarax Therapeutic interventions: 1:1 assessment, establishment of rapport, maintained safe therapeutic milieu, provided active listening with positive feedback, provided medication education, monitored for change in behavior and provided needed interventions. Q 15 minute safety checks. Restraints/seclusion/emergency medication: N/A Justification of Continued Inpatient Treatment: Continued therapeutic support and medication management needed to provide stabilization, prevent decompensation, improve coping mechanisms decreasing risk to patient and re-admittance. Chief Complaint
[2019-07-24 07:10] LABS: HEMOGLOBIN A1C 5.6 % (4.5-6.2)
[2019-07-24 07:13] LABS: CHOL/HDL RATIO 3.2 (0.00-4.99); CHOLESTEROL 111 MG/DL (0-200); HDL CHOLESTEROL 35 MG/DL (35-60); LDL CHOLESTEROL 66 MG/DL (50-100); TRIGLYCERIDES 85 MG/DL (20-135)
[2019-07-24 08:00] VITALS: BP 150/87
[2019-07-24] MEDS: busPIRone 15mg tablet PO SCH ×2 (08:20→20:18)
[2019-07-24] MEDS: propranolol 10mg tablet PO SCH ×2 (08:20→20:18)
[2019-07-24] MEDS: naproxen 500mg tablet PO SCH (08:20)
[2019-07-24] MEDS: benztropine 1mg tablet PO SCH ×2 (08:20→20:18)
[2019-07-24] MEDS: multivitamins, therapeutics tablet PO SCH (08:20)
[2019-07-24] MEDS: hydrOXYzine 25 MG tablet PO SCH ×4 (08:21→20:19)
[2019-07-24] MEDS: atorvastatin 20mg tablet PO SCH (08:21)
[2019-07-24] MEDS: duloxetine 30mg CAPSULE.DR PO SCH ×2 (08:21→20:18)
[2019-07-24] MEDS: lisinopril 10 MG tablet PO SCH (08:21)
[2019-07-24] MEDS ORDERED: diphenhydrAMINE 25mg capsule PO ONE (08:35)
[2019-07-24] MEDS ORDERED: haloperidol 5mg tablet PO ONE (08:35)
[2019-07-24] MEDS ORDERED: LORazepam 1 MG tablet PO ONE (08:35)
[2019-07-24] MEDS ORDERED: haloperidol lactate 5mg/ml inj ONE (08:42)
[2019-07-24] MEDS ORDERED: diphenhydrAMINE 50 mg/ml inj ONE (08:43)
[2019-07-24] MEDS ORDERED: LORazepam 2 mg/ml vial ONE (08:44)
[2019-07-24] MEDS ORDERED: LORazepam 2 mg/ml vial IM ONE (09:00)
[2019-07-24 09:35] VITALS: BP 157/91
[2019-07-24 10:30] VITALS: BP 146/77
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
[2019-07-24 19:00] VITALS: BP 111/84
[2019-07-24] MEDS: traZODone 50mg tablet PO SCH (20:19)
--- NOTE | 2019-07-24 20:26 | NUR ---
The 1899 Physical assessment on this patient under this writers name were entered in error. They were not meant for this patient. The legal status for this patient that was written under this patients name are incorrect also. Please disregard.
[2019-07-24] MEDS: risperiDONE 0.5mg tablet PO SCH (21:00)
--- NOTE | 2019-07-24 23:08 | NUR ---
Nursing Progress Note: Legal hold: 5150 Client on involuntary status for DTS Report received from ALEC Pacheco with use of SBAR. Why are they here: Pt was BIB [employer] on 07/22/13 after daughter called the police on him for being angry and aggressive, making violent threats to blow up the house and threatening to jump in front of a moving vehicle. Pt is confused, only oriented to self. He is paranoid and delusional. He is disorganized in his movements, unable to dress himself without prompting and direction. Assessment What happened this shift: The patient was in the hallway at shift change. he was sitting in a chair with his PCT at his side. he agreed to go to his room for 1:1, but the patient has disorganized thoughts and is unable to answer most questions. The patient this evening was calm without making any threats or aggression. When he did speak tonite, he used a low voice that was hard to hear. The questions he answered were mostly incongruent to the question asked. The patient spent the evening in the rec room or his room. He took his meds with no problem. An order for Risperdal came after he had gotten his meds, and he was lying down. He refused it. S/I, H/I: denies A/VH: Denies Sleep: See sleep hours ADL's: Needs assist and prompting Group attendance: No groups at night Were Meds taken: Yes Any med S/E: None reported or observed Mental Status Exam Appearance: Disheveled man wearing green scrubs. Eye contact: Good Behavior: Calm ,quiet, relaxing. Speech: mumbles at times, low volume. Mood: Confused Affect: Flat Thought process: Paranoid delusions, disorganized, confused Thought Content: Believes his kids are being taken from him, believes it is the end of the world Cognition: A/O X 1 Insight: Poor Judgment: Impaired Interventions PRN's used: N/A Therapeutic interventions: 1:1 assessment, medication administration/education/monitoring, prompting, redirection, limit setting, verbal de-escalation, LOS. Restraints/seclusion/emergency medication: N/A. Justification of Continued Inpatient Treatment: Pt is severely confused with paranoid delusions and HI with combative/assaultive behaviors. He needs medication adjustment and monitoring for crisis stabilization to optimize safety of pt and others and prevent readmission
[2019-07-25] MEDS: busPIRone 15mg tablet PO SCH ×2 (07:40→20:26)
[2019-07-25] MEDS: multivitamins, therapeutics tablet PO SCH (07:41)
[2019-07-25] MEDS: naproxen 500mg tablet PO SCH (07:41)
[2019-07-25] MEDS: duloxetine 30mg CAPSULE.DR PO SCH ×2 (07:42→20:26)
[2019-07-25] MEDS: atorvastatin 20mg tablet PO SCH (07:42)
[2019-07-25] MEDS: benztropine 1mg tablet PO SCH (07:42)
[2019-07-25] MEDS: propranolol 10mg tablet PO SCH ×2 (07:43→20:27)
[2019-07-25] MEDS: hydrOXYzine 25 MG tablet PO SCH (07:43)
[2019-07-25] MEDS: lisinopril 10 MG tablet PO SCH (07:44)
[2019-07-25 07:52] VITALS: BP 145/77
--- NOTE | 2019-07-25 14:46 | NUR ---
Nursing Progress Note: [place] Legal hold: 5150 Client on involuntary status for DTS Report received from ALEC Pacheco with use of SBAR. Why are they here: Pt was BIB [facility] on 07/22/13 after daughter called the police on him for being angry and aggressive, making violent threats to blow up the house and threatening to jump in front of a moving vehicle. Pt is confused, only oriented to self. He is paranoid and delusional. He is disorganized in his movements, unable to dress himself without prompting and direction. Assessment What happened this shift: Patient was awake lying in bed at change of shift. Approached patient and quietly spoke to him regarding how he was feeling today. Patient was aware he was at [facility], was able to correctly name his four children, which he was unable to do yesterday. C/O dry mouth, provided with water pitcher. According to PCT who is providing LOS patient became very agitated approximately 1 hour after taking meds. Per PCT, patient stated he felt it had to do with his medications. PCT was able to keep patient calm, medications were reviewed by this health underwriter for possible SE patient was experiencing. This health underwriter spoke with Provider who agrees to carefully review his medications. Patient requested to call his daughter Laurel, he was provided with the phone number and a phone. Patient reported having a very nice conversation with his daughter. Patient continues to demonstrate confusion, (unable to find his own room), unable to complete thoughts due to loss of words or memory issues. Remained calm, cooperative while on unit but wandered quite a lot. S/I, H/I: denies A/VH: Denies Sleep: 6.5 ADL's: showered today with assistance Group attendance: No Group Were Meds taken: Yes Any med S/E: Increased agitation (hydroxazine) Chest pain 07/24/ (abilify?) Dry mouth Appearance: clean, hair combed, looking for nicer clothes Eye contact: Good Behavior: Calm ,quiet, relaxing. Speech: mumbles at times, low volume. Mood: minimally confused Affect: Constricted Thought process: Forgetful, causing frustration, difficulty in completing thoughs Thought Content: Medication affects "I feel like I am drunk, like swimming naked." Cognition: A/O X 3 Insight: Poor Judgment: Impaired Interventions PRN's used: N/A Therapeutic interventions: 1:1 assessment, medication administration/education/monitoring, prompting, redirection, limit setting, verbal de-escalation, LOS. Restraints/seclusion/emergency medication: N/A. Justification of Continued Inpatient Treatment: Pt is severely confused with paranoid delusions and HI with combative/assaultive behaviors. He needs medication adjustment and monitoring for crisis stabilization to optimize safety of pt and others and prevent readmission Addendum: 07/25/19 at 1638 by Laurel Schreiber RN Spoke with MD regarding the appropriateness of patient taking abilify, and cogentin as they are listed on "Beers criteria" as potentially unsafe in older adults. Was advised Cogentin, abilify, and atarax should be discontinued.
[2019-07-25 19:34] VITALS: BP 138/86
[2019-07-25] MEDS: traZODone 50mg tablet PO SCH (20:26)
[2019-07-25] MEDS: risperiDONE 0.5mg tablet PO SCH (20:26)
--- NOTE | 2019-07-26 02:05 | NUR ---
Nursing Progress Note: Legal hold: 5150 Client on involuntary status for DTS Report received from ALEC Pacheco with use of SBAR. Why are they here: Pt was BIB [facility] on 07/22/13 after daughter called the police on him for being angry and aggressive, making violent threats to blow up the house and threatening to jump in front of a moving vehicle. Pt is confused, only oriented to self. He is paranoid and delusional. He is disorganized in his movements, unable to dress himself without prompting and direction. Assessment What happened this shift: The patient was in the hallway at shift change. He was wandering aimlessly. When asked how he was doing, he responded, "can you help me find the exit?" He continues to be confused when trying to locate his room, and will walk in other rooms. The patient had a visit from his daughters clint, and they were able to talk to the MD. After the visit the patient took his HS meds, then went to bed. When he was handed his meds, the patient appeared confused on how to take them. He took the med cup and poured water in it, then tried to drink them. Some of the pills dissolved and he had a hard time getting them out of the cup. S/I, H/I: denies A/VH: Denies Sleep: See sleep hours ADL's: Needs assist and prompting Group attendance: No groups at night Were Meds taken: Yes Any med S/E: None reported or observed Mental Status Exam Appearance: Disheveled man wearing street clothes. Eye contact: Good Behavior: Calm ,quiet, relaxing. Speech: mumbles at times, low volume. Mood: Confused Affect: Blunted Thought process: Paranoid delusions, disorganized, confused Thought Content: Believes his kids are being taken from him, believes it is the end of the world Cognition: A/O X 1 Insight: Poor Judgment: Impaired Interventions PRN's used: N/A Therapeutic interventions: 1:1 assessment, medication administration/education/monitoring, prompting, redirection, limit setting, verbal de-escalation, LOS. Restraints/seclusion/emergency medication: N/A. Justification of Continued Inpatient Treatment: Pt is severely confused with paranoid delusions and HI with combative/assaultive behaviors. He needs medication adjustment and monitoring for crisis stabilization to optimize safety of pt and others and prevent readmission
[2019-07-26] MEDS: busPIRone 15mg tablet PO SCH ×2 (07:14→20:43)
[2019-07-26] MEDS: naproxen 500mg tablet PO SCH (07:14)
[2019-07-26] MEDS: duloxetine 30mg CAPSULE.DR PO SCH ×2 (07:14→14:10)
[2019-07-26] MEDS: propranolol 10mg tablet PO SCH ×2 (07:14→20:44)
[2019-07-26] MEDS: multivitamins, therapeutics tablet PO SCH (07:15)
[2019-07-26] MEDS: atorvastatin 20mg tablet PO SCH (07:15)
[2019-07-26] MEDS: lisinopril 10 MG tablet PO SCH (07:15)
[2019-07-26 08:00] VITALS: BP 154/83
--- NOTE | 2019-07-26 14:49 | NUR ---
Nursing Progress Note: [place] Legal hold: 5150 Expires Client on involuntary status for DTS Report received from JAZZY Barragan with use of SBAR. Why are they here: Pt was BIB [facility] on 07/22/13 after daughter called the police on him for being angry and aggressive, making violent threats to blow up the house and threatening to jump in front of a moving vehicle. Pt is confused, only oriented to self. He is paranoid and delusional. He is disorganized in his movements, unable to dress himself without prompting and direction. Assessment What happened this shift: Patient was asleep at change of shift. Spoke with patient briefly prior to medication administration. He was able to discuss the visit by his daughters the prior evening. Continues to demonstrate difficulty in finding words and becomes frustrated. Discussed each of his medications as well as those which had been discontinued. Joined others in community room for breakfast, showered with assistance and dressed in personal clothing. Attended group. While he still demonstrates periods of confusion, it appears he is more able to focus and be redirected. Spoke about seeing a chain in his bedding. He asked "you dont see it do you? I am hallucinating, it bothers me when I see things that arent there." Was encouraged to attend group but was observed as having difficulty following directions, easily becomes distracted. S/I, H/I: denies A/VH: visual Sleep: 7.3 ADL's: Showered with assistance Group attendance: Yes Were Meds taken: Yes Any med S/E: May still be experiencing side effects from atarax, abilify, and cogentin symptoms are improving Mental Status Exam Appearance: Disheveled man wearing street clothes. Eye contact: Good Behavior: Calm ,quiet, more relaxed, able to follow unit routine Speech: mumbles at times, low volume. Mood: depressed, frustrated Affect: Blunted Thought process: disorganized, confused Thought Content: feeling better, going home Cognition: A/O X 3 Insight: Poor Judgment: Impaired Interventions PRN's used: N/A Therapeutic interventions: 1:1 assessment, medication administration/education/monitoring, prompting, redirection, limit setting, verbal de-escalation, LOS. Restraints/seclusion/emergency medication: N/A. Justification of Continued Inpatient Treatment: Pt is severely confused with paranoid delusions and HI with combative/assaultive behaviors. He needs medication adjustment and monitoring for crisis stabilization to optimize safety of pt and others and prevent readmission Addendum: 07/26/19 at 1711 by Laurel Schreiber RN Due to several circumstances the environment became over stimulating for patient and he had audio and visual hallucinations believing there were people with guns and a bomb on the unit. He became very agitated while he appeared aggressive, he seemed to be more concerned about protecting those on the unit. and focusing the attention to those he didn't recognize. Medicated with Ativam 1mg PO after much encouragement. Remained with security and PCT until adequatel calmed down.
[2019-07-26] MEDS: LORazepam 1 MG tablet PO PRN (16:04)
[2019-07-26 20:00] VITALS: BP 115/76
[2019-07-26] MEDS: traZODone 50mg tablet PO SCH (20:44)
[2019-07-26] MEDS: risperiDONE 0.5mg tablet PO SCH (20:44)
--- NOTE | 2019-07-27 02:00 | NUR ---
Nursing Progress Note: Legal hold: 5150 Client on involuntary status for DTS Report received from ALEC Barragan with use of SBAR. Why are they here: Pt was BIB [facility] on 07/22/13 after daughter called the police on him for being angry and aggressive, making violent threats to blow up the house and threatening to jump in front of a moving vehicle. Pt is confused, only oriented to self. He is paranoid and delusional. He is disorganized in his movements, unable to dress himself without prompting and direction. Assessment What happened this shift: The patient was seen in his room at shift change. He was seen at bedside for 1:1. The patient continues to be confused and has hard time finding words. The patient will say something that makes sense, then follow up with something that doesn't. "It's been michael rough lately. The plastic is too hard. Are you going to do my cab?" The patient had visit with his daughters clint. He appeared happy to see all his girls. After they left, the patient was given HS meds. He had no problem taking them tonight. He was asleep soon after. S/I, H/I: Denies A/VH: Denies Sleep: See sleep hours ADL's: Needs assist and prompting Group attendance: No groups at night Were Meds taken: Yes Any med S/E: None reported or observed Mental Status Exam Appearance: Disheveled man wearing street clothes. Eye contact: Good Behavior: Paces, wanders. Speech: mumbles at times, low volume. Mood: Confused Affect: Blunted Thought process: Paranoid delusions, disorganized, confused Thought Content: Believes his kids are being taken from him, believes it is the end of the world Cognition: A/O X 1 Insight: Poor Judgment: Impaired Interventions PRN's used: N/A Therapeutic interventions: 1:1 assessment, medication administration/education/monitoring, prompting, redirection, limit setting, verbal de-escalation, LOS. Restraints/seclusion/emergency medication: N/A. Justification of Continued Inpatient Treatment: Pt is severely confused with paranoid delusions and HI with combative/assaultive behaviors. He needs medication adjustment and monitoring for crisis stabilization to optimize safety of pt and others and prevent readmission
[2019-07-27 08:00] VITALS: BP 140/77
[2019-07-27] MEDS: naproxen 500mg tablet PO SCH (08:28)
[2019-07-27] MEDS: propranolol 10mg tablet PO SCH ×2 (08:28→20:12)
[2019-07-27] MEDS: busPIRone 15mg tablet PO SCH ×2 (08:28→20:12)
[2019-07-27] MEDS: duloxetine 30mg CAPSULE.DR PO SCH ×2 (08:28→14:47)
[2019-07-27] MEDS: atorvastatin 20mg tablet PO SCH ×2 (08:29→08:31)
[2019-07-27] MEDS: lisinopril 10 MG tablet PO SCH (08:29)
[2019-07-27] MEDS: multivitamins, therapeutics tablet PO SCH (08:29)
[2019-07-27] MEDS: LORazepam 1 MG tablet PO PRN (13:28)
--- NOTE | 2019-07-27 15:46 | NUR ---
Nursing Progress Note: [place] Legal hold: 5150 Client on involuntary status for DTS Report received from ALEC Sarmiento with use of SBAR. Why are they here: Pt was BIB [facility] on 07/22/13 after daughter called the police on him for being angry and aggressive, making violent threats to blow up the house and threatening to jump in front of a moving vehicle. Pt is confused, only oriented to self. He is paranoid and delusional. He is disorganized in his movements, unable to dress himself without prompting and direction. Assessment: What happened this shift: Client was resting in bed to begin this shift. Client is confused and only alert and oriented x 1 (person). Compliant with assessment and medications. Patient was visible in Group Room after consuming his am meal. No somatic complaints or behavioral issues as of this writing. Client will often say things that do not pertain to conversation and laugh. Client attended group activities in am and was visible on unit. Behaviors have been appropriate this am but client became restless and agitated after lunch and was medicated per orders with Ativan (with good effect). Client now on LOS due to unpredictable behaviors displayed this afternoon. Client reaches for objects that are not present and has had some sexually innappropriate unit behaviors. Client is redirectable but at this time but is prone to behavioral episodes that require staff intervention. S/I, H/I: Denies A/VH: Denies Sleep: ADL's: Needs assist and prompting Group attendance: yes Were Meds taken: Yes Any med S/E: None reported or observed Mental Status Exam Appearance: Disheveled man wearing street clothes. Eye contact: Good Behavior: Paces, wanders. Speech: mumbles at times, low volume. Mood: Confused Affect: Blunted Thought process: Paranoid delusions, disorganized, confused Thought Content: Cognition: A/O X 1 Insight: Poor Judgment: Impaired Interventions PRN's used: N/A Therapeutic interventions: 1:1 assessment, medication administration/education/monitoring, prompting, redirection, limit setting, verbal de-escalation, LOS. Restraints/seclusion/emergency medication: N/A. Justification of Continued Inpatient Treatment: Pt is severely confused with paranoid delusions and HI with combative/assaultive behaviors. He needs medication adjustment and monitoring for crisis stabilization to optimize safety of pt and others and prevent readmission
[2019-07-27] MEDS: traZODone 50mg tablet PO SCH (20:12)
[2019-07-27 20:30] VITALS: BP 171/92
--- NOTE | 2019-07-28 01:14 | NUR ---
Nursing Progress Note: Legal hold: 5150 Client on involuntary status for DTS Report received from ALEC Barragan with use of SBAR. Why are they here: Pt was BIB [facility] on 07/22/13 after daughter called the police on him for being angry and aggressive, making violent threats to blow up the house and threatening to jump in front of a moving vehicle. Pt is confused, only oriented to self. He is paranoid and delusional. He is disorganized in his movements, unable to dress himself without prompting and direction. Assessment What happened this shift: The patient was wandering the halls at shift change. He spends time out on the unit waiting for his girls to visit. He has a loving family that will take good care of him. The patient still has disorganized thoughts and trouble finding the right words. The patient has acted appropriately on the unit with no outbursts tonight. He visited with family members, took his HS meds, then went to bed. S/I, H/I: Denies A/VH: Denies Sleep: See sleep hours ADL's: Needs assist and prompting Group attendance: No groups at night Were Meds taken: Yes Any med S/E: None reported or observed Mental Status Exam Appearance: Disheveled man wearing street clothes. Eye contact: Good Behavior: Paces, wanders. Speech: Mumbles at times, low volume. Mood: Confused Affect: Blunted Thought process: Paranoid delusions, disorganized, confused Thought Content: Believes his kids are being taken from him, believes it is the end of the world Cognition: A/O X 1 Insight: Poor Judgment: Impaired Interventions PRN's used: N/A Therapeutic interventions: 1:1 assessment, medication administration/education/monitoring, prompting, redirection, limit setting, verbal de-escalation, LOS. Restraints/seclusion/emergency medication: N/A. Justification of Continued Inpatient Treatment: Pt is severely confused with paranoid delusions and HI with combative/assaultive behaviors. He needs medication adjustment and monitoring for crisis stabilization to optimize safety of pt and others and prevent readmission
[2019-07-28] MEDS: propranolol 10mg tablet PO SCH ×2 (07:38→20:34)
[2019-07-28] MEDS: busPIRone 15mg tablet PO SCH ×2 (07:38→20:35)
[2019-07-28] MEDS: multivitamins, therapeutics tablet PO SCH (07:38)
[2019-07-28] MEDS: duloxetine 30mg CAPSULE.DR PO SCH ×2 (07:38→13:21)
[2019-07-28] MEDS: atorvastatin 20mg tablet PO SCH (07:38)
[2019-07-28] MEDS: naproxen 500mg tablet PO SCH (07:39)
[2019-07-28] MEDS: lisinopril 10 MG tablet PO SCH (07:44)
[2019-07-28 08:00] VITALS: BP 124/65
[2019-07-28] MEDS: LORazepam 1 MG tablet PO PRN (11:38)
--- NOTE | 2019-07-28 15:54 | NUR ---
Initial: patient is eating regular diet. Appetite is fair. Ate 100% of breakfast however refused dinner last night, on average eating 50-75%. Documented with constipation, last BM 07/25, three days ago. Pt has milk of magnesia prn, not given yet. Patient would benefit from bowel care in view of constipation, Recommend: 1. continue regular diet 2. patient would benefit from bowel care in view of constipation 3. weekly weights Addendum: 07/28/19 at [address] Amended: Links added.
--- NOTE | 2019-07-28 16:25 | NUR ---
Nursing Progress Note Legal hold: 5250 Client on involuntary status for DTS Report received from ALEC Sarmiento with use of SBAR. Why are they here: Pt was BIB [facility] on 07/22/13 after daughter called the police on him for being angry and aggressive, making violent threats to blow up the house and threatening to jump in front of a moving vehicle. Pt is confused, only oriented to self. He is paranoid and delusional. He is disorganized in his movements, unable to dress himself without prompting and direction. Assessment: What happened this shift: Patient is observed in group room at change of shift. When approached patient is calm and friendly. His thoughts are disorganized, speech is mumbly and discussion does not always follow what is being asked. Patient attempts to dump his medication into his coffee but is easily redirected. RN discussed with patient that the Dr would like an MRI, patient states that he has had this before and is comfortable having it done. RN administered PRN ativan prior to patient leaving for MRI. After MRI patient returned slightly dizzy but no other issues during test. At lunch time patient is observed reaching towards his shoes on the floor and says he is trying to get the lactose. He is also observed making movements as if he is taking things off his fingers when nothing is there. Patient states that he has not had a BM. RN attempted to administer MOM, patient consumed about half before spilling it on the floor. S/I, H/I: Denies A/VH: Denies Sleep: 8.75hrs NOC ADL's: Needs assist and prompting Group attendance: yes Were Meds taken: Yes Any med S/E: None reported or observed Mental Status Exam Appearance: Disheveled man wearing jeans Eye contact: direct Behavior: Paces, wanders. Speech: mumbles at times, soft tone Mood: Confused Affect: Blunted Thought process: disorganized, confused Thought Content: no delusional thought content made this shift Cognition: A/O X 1 Insight: Poor Judgment: Impaired Interventions PRN's used: Ativan, MOM Therapeutic interventions: 1:1 therapeutic assessment, maintained safe therapeutic milieu, provided active listening with positive reinforcement, provided medication administration/education/monitoring as needed; Q15 safety checks. Restraints/seclusion/emergency medication: N/A. Justification of Continued Inpatient Treatment: Pt is severely confused with paranoid delusions and HI with combative/assaultive behaviors. Continued therapeutic support and medication management needed to provide stabilization, prevent decompensation, improve coping mechanisms decreasing risk to patient and re-admittance.
--- NOTE | 2019-07-28 17:23 | NUR ---
Group Art Therapy (Continued): Patient was able to attend and participate in group with assistance from a nursing manager who was able to follow the group directives. Patient was able to select/point to a picture and glue it to the paper he was provided. Together they serenity out from the picture using colored marking pens. Patient was able to give his piece a positive title "What a Glorious Night," which did reflect his picture of the night pauline. Patient attempted to interact with both this therapist and his educational program assistant to complete this activity. He remained in group for the entire session, listening attentively to his peers as they shared in group process. Ainsley Shelley M.A. Licensed Marriage, Family Therapist #[id number] [facility] Art Therapist Addendum: 07/28/19 at 1726 by Ainsley Shelley Amended: Links added.
[2019-07-28 19:55] VITALS: BP 117/79
[2019-07-28] MEDS: traZODone 50mg tablet PO SCH (20:34)
--- NOTE | 2019-07-29 04:10 | NUR ---
Nursing Progress Note Legal hold: 5250 Client on involuntary status for DTS Report received from ALEC Suero with use of SBAR. Why are they here: Pt was BIB [facility] on 07/22/13 after daughter called the police on him for being angry and aggressive, making violent threats to blow up the house and threatening to jump in front of a moving vehicle. Pt is confused, only oriented to self. He is paranoid and delusional. He is disorganized in his movements, unable to dress himself without prompting and direction. Assessment: What happened this shift: Patient in his bedroom at the beginning of shift. Patient does not respond to questions appropriately. Patient remained pleasant an cooperative. Attended group room for HS snack, shortly after snack patient laid down in his bedroom where he has remained most of the shift. Patient mummbles and appears to respond to internal stimuli. S/I, H/I: Denies A/VH:appears to respond to internal stimuli Sleep: asleep at this time ADL's: Needs assist and prompting Group attendance: no groups this shift Were Meds taken: Yes Any med S/E: None reported or observed Mental Status Exam Appearance: Disheveled man wearing jeans Eye contact: direct Behavior: Paces, wanders. Speech: mumbles at times, soft tone Mood: Confused Affect: Blunted Thought process: disorganized, confused Thought Content: unable to assess Cognition: A/O X 1 Insight: Poor Judgment: Impaired Interventions PRN's used: none at this time Therapeutic interventions: 1:1 therapeutic assessment, maintained safe therapeutic milieu, provided active listening with positive reinforcement, provided medication administration/education/monitoring as needed; Q15 safety checks. Restraints/seclusion/emergency medication: N/A. Justification of Continued Inpatient Treatment: Pt is severely confused with paranoid delusions and HI with combative/assaultive behaviors. Continued therapeutic support and medication management needed to provide stabilization, prevent decompensation, improve coping mechanisms decreasing risk to patient and re-admittance.
[2019-07-29] MEDS: atorvastatin 20mg tablet PO SCH (07:29)
[2019-07-29] MEDS: multivitamins, therapeutics tablet PO SCH (07:29)
[2019-07-29] MEDS: lisinopril 10 MG tablet PO SCH (07:30)
[2019-07-29] MEDS: duloxetine 30mg CAPSULE.DR PO SCH ×2 (07:30→13:20)
[2019-07-29] MEDS: naproxen 500mg tablet PO SCH (07:30)
[2019-07-29] MEDS: busPIRone 15mg tablet PO SCH ×2 (07:31→20:59)
[2019-07-29] MEDS: propranolol 10mg tablet PO SCH ×2 (07:31→20:59)
[2019-07-29 07:54] VITALS: BP 142/73
[2019-07-29] MEDS: LORazepam 1 MG tablet PO PRN (13:20)
--- NOTE | 2019-07-29 17:00 | NUR ---
Nursing Progress Note Legal hold: 5250 Client on involuntary status for DTS Report received from ALEC Sarmiento with use of SBAR. Why are they here: Pt was BIB [facility] on 07/22/13 after daughter called the police on him for being angry and aggressive, making violent threats to blow up the house and threatening to jump in front of a moving vehicle. Pt is confused, only oriented to self. He is paranoid and delusional. He is disorganized in his movements, unable to dress himself without prompting and direction. Assessment: What happened this shift: Pt. awake at start of shift. Pt. is pleasantly confused, taking all medications, and eating all meals in the community room. Pt. A&O to self only. Pt. states he feels neither happy nor sad and is usnure why. Pt. seen walking and takling with his roomate, however, when roomate is asleep, pt. becomes suspicious EEG done at bedside. pt. became increasingly agitated after lunch, believing that a community relations police lieutenant was after him, than he believed that a staff member was after him. Pt. continually looking behind him. Pt. given ativan 1mg po with good effect. pt. laid down and napped, but repeatedly woke up because he was paranoid. Later in afternoon pt. became more relaxed but still very confused. Pt. asked this RN, "When are we going to [place]? Are we grilling? Who's bringing the beer"? Unable to reorient pt. S/I, H/I: Denies A/VH:appears to respond to internal stimuli Sleep: No naps ADL's: Needs assist and prompting Group attendance: Yes Were Meds taken: Yes Any med S/E: None reported or observed Mental Status Exam Appearance: Disheveled man wearing jeans Eye contact: direct Behavior: Paces, wanders Speech: mumbles at times, soft tone Mood: pleasant this AM, becoming anxious and paranoid in afternoon. Affect: Flat with brightening Thought process: disorganized, confused Thought Content: unable to assess Cognition: A/O X 1 Insight: Poor Judgment: Impaired Interventions PRN's used: Ativan. Therapeutic interventions: 1:1 therapeutic assessment, maintained safe therapeutic milieu, provided active listening with positive reinforcement, provided medication administration/education/monitoring as needed; Q15 safety checks. Restraints/seclusion/emergency medication: N/A. Justification of Continued Inpatient Treatment: Pt is severely confused with paranoid delusions and HI with combative/assaultive behaviors. Continued therapeutic support and medication management needed to provide stabilization, prevent decompensation, improve coping mechanisms decreasing risk to patient and re-admittance.
[2019-07-29] MEDS ORDERED: benztropine 1 mg/ml 2ml ampule IM ONE (19:40)
[2019-07-29] MEDS ORDERED: OLANZapine **IM** 10 mg inj. IM ONE (19:40)
[2019-07-29 19:55] VITALS: BP 139/68
[2019-07-29 20:15] VITALS: BP 117/71
[2019-07-29 20:30] VITALS: BP 112/64
[2019-07-29 20:45] VITALS: BP 119/63
[2019-07-29] MEDS: traZODone 50mg tablet PO SCH (20:59)
[2019-07-29] MEDS ORDERED: QUEtiapine 25mg tablet PO SCH (21:00)
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
[2019-07-30] MEDS: busPIRone 15mg tablet PO SCH ×2 (08:09→21:32)
[2019-07-30] MEDS: multivitamins, therapeutics tablet PO SCH (08:10)
[2019-07-30] MEDS: lisinopril 10 MG tablet PO SCH (08:10)
[2019-07-30] MEDS: atorvastatin 20mg tablet PO SCH (08:10)
[2019-07-30] MEDS: naproxen 500mg tablet PO SCH (08:11)
[2019-07-30] MEDS: propranolol 10mg tablet PO SCH ×2 (08:11→21:34)
[2019-07-30] MEDS: duloxetine 30mg CAPSULE.DR PO SCH ×2 (08:11→14:41)
[2019-07-30 08:21] VITALS: BP 135/79
[2019-07-30] MEDS ORDERED: docusate sod 100mg capsule PO ONE (11:30)
[2019-07-30] MEDS ORDERED: QUEtiapine 25mg tablet PO SCH (13:55)
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
[2019-07-30 20:00] VITALS: BP 130/75
[2019-07-30] MEDS: docusate sod 100mg capsule PO SCH (21:32)
[2019-07-30] MEDS: traZODone 50mg tablet PO SCH (21:32)
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
[2019-07-31] MEDS: duloxetine 30mg CAPSULE.DR PO SCH (08:00)
[2019-07-31] MEDS: busPIRone 15mg tablet PO SCH ×2 (08:05→20:06)
[2019-07-31] MEDS: multivitamins, therapeutics tablet PO SCH (08:05)
[2019-07-31] MEDS: lisinopril 10 MG tablet PO SCH (08:06)
[2019-07-31] MEDS: atorvastatin 20mg tablet PO SCH (08:06)
[2019-07-31] MEDS: docusate sod 100mg capsule PO SCH ×2 (08:06→20:05)
[2019-07-31] MEDS: propranolol 10mg tablet PO SCH ×2 (08:06→20:05)
[2019-07-31] MEDS: naproxen 500mg tablet PO SCH (08:07)
[2019-07-31 09:47] VITALS: BP 117/81
--- NOTE | 2019-07-31 10:22 | NUR ---
reassessment: Pt PO 75-100% regular diet at this time. LBM 07/27 receiving colace BID w/ MoM PRN. Will continue to monitor. Recommend: 1. continue regular diet 2. patient would benefit from bowel care in view of constipation 3. weekly weights Addendum: 07/31/19 at [address] Amended: Links added.
[2019-07-31] MEDS ORDERED: duloxetine 30mg CAPSULE.DR PO SCH (14:00)
[2019-07-31] MEDS: LORazepam 1 MG tablet PO PRN (16:29)
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
[2019-07-31 19:00] VITALS: BP 118/71
[2019-07-31] MEDS ORDERED: QUEtiapine 25mg tablet PO SCH (21:00)
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
[2019-08-01] MEDS: atorvastatin 20mg tablet PO SCH (07:49)
[2019-08-01] MEDS: busPIRone 15mg tablet PO SCH ×2 (07:49→19:59)
[2019-08-01] MEDS: naproxen 500mg tablet PO SCH (07:49)
[2019-08-01] MEDS: docusate sod 100mg capsule PO SCH ×2 (07:49→19:59)
[2019-08-01] MEDS: multivitamins, therapeutics tablet PO SCH (07:50)
[2019-08-01] MEDS: lisinopril 10 MG tablet PO SCH (07:50)
[2019-08-01] MEDS: duloxetine 30mg CAPSULE.DR PO SCH (07:50)
[2019-08-01] MEDS: propranolol 10mg tablet PO SCH (07:50)
[2019-08-01 08:00] VITALS: BP 108/74
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
[2019-08-01] MEDS: QUEtiapine 25mg tablet PO SCH (18:10)
[2019-08-01 20:06] VITALS: BP 126/66
[2019-08-02] MEDS: docusate sod 100mg capsule PO SCH ×2 (07:22→20:04)
[2019-08-02] MEDS: lisinopril 10 MG tablet PO SCH (07:22)
[2019-08-02] MEDS: busPIRone 15mg tablet PO SCH ×2 (07:22→20:04)
[2019-08-02] MEDS: atorvastatin 20mg tablet PO SCH (07:23)
[2019-08-02] MEDS: multivitamins, therapeutics tablet PO SCH (07:23)
[2019-08-02] MEDS: naproxen 500mg tablet PO SCH (07:23)
[2019-08-02] MEDS: duloxetine 30mg CAPSULE.DR PO SCH (07:24)
[2019-08-02 07:39] VITALS: BP 145/76
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
[2019-08-02] MEDS: QUEtiapine 25mg tablet PO SCH (18:10)
[2019-08-02 19:32] VITALS: BP 134/75
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
[2019-08-03] MEDS: naproxen 500mg tablet PO SCH (07:21)
[2019-08-03] MEDS: docusate sod 100mg capsule PO SCH ×2 (07:21→20:08)
[2019-08-03] MEDS: busPIRone 15mg tablet PO SCH ×2 (07:22→20:08)
[2019-08-03] MEDS: multivitamins, therapeutics tablet PO SCH (07:22)
[2019-08-03] MEDS: atorvastatin 20mg tablet PO SCH (07:23)
[2019-08-03] MEDS: lisinopril 10 MG tablet PO SCH (07:23)
[2019-08-03] MEDS: duloxetine 30mg CAPSULE.DR PO SCH (07:24)
[2019-08-03 07:30] VITALS: BP 135/71
--- NOTE | 2019-08-03 17:00 | NUR ---
Nursing Progress Note Legal hold: VOL Client on involuntary status for DTS Report received from ALEC Hinson with use of SBAR. Why are they here: Pt was BIB [facility] on 07/22/13 after daughter called the police on him for being angry and aggressive, making violent threats to blow up the house and threatening to jump in front of a moving vehicle. Pt is confused, only oriented to self. He is paranoid and delusional. He is disorganized in his movements, unable to dress himself without prompting and direction. Assessment: What happened this shift: Pt. is awake at change of shift. Per report pt. was awake at 5am. Pt. took all medications. pt. c/o of restlessness in his legs, pt. states, "I feel like I am in a vice". Pt. came out of dinning room sobbing saying, "I am so shaky I need to go to my bed. I'm hungry but I cannot eat". RN informed pt.'s provider about his tremors and provider will cut back on pt.'s cymbalta. Pt. eventually ate all of his breakfast. Pt. denies SI/HI, A/V H. Pt. denies visual hallucinations today. Pt. states, "I just want to go home". Pt.'s thinking more linear today. S/I, H/I: Denies A/VH: Denies Sleep: Pt wakes early in the morning. Pt. napped x1 ADL's: Needs prompting Group attendance: Yes Were Meds taken: Yes Any med S/E: None reported or observed Mental Status Exam Appearance: clean, well groomed, dressed in own clothing Eye contact: Direct Behavior: cooperative, pacing, socializing and joking with staff and patients. Speech: Clear Mood: Euthymic with moments of anxiety. Affect: Congruent with affect Thought process: Pt. appeared to be more linear and have greater clarity today with moments of confusion. Thought Content: delusional thought content present Cognition: A/O X 1 Insight: Poor Judgment: Impaired Interventions PRN's used:None Therapeutic interventions: 1:1 assessment, establishment of rapport, maintained safe therapeutic milieu, provided active listening with positive feedback, provided medication education and monitored for effects, monitored for change in behavior and provided needed interventions. Q 15 minute safety checks. Restraints/seclusion/emergency medication: N/A Justification of Continued Inpatient Treatment: Continued therapeutic support and medication management needed to provide stabilization, prevent decompensation, improve coping mechanisms decreasing risk to patient and re-admittance.
[2019-08-03] MEDS: QUEtiapine 25mg tablet PO SCH (18:13)
[2019-08-03 19:31] VITALS: BP 130/79
--- NOTE | 2019-08-03 21:04 | NUR ---
Nursing Progress Note Legal hold: VOL Client on involuntary status for DTS Report received from ALEC Hinson with use of SBAR. Why are they here: Pt was BIB [facility] on 07/22/13 after daughter called the police on him for being angry and aggressive, making violent threats to blow up the house and threatening to jump in front of a moving vehicle. Pt is confused, only oriented to self. He is paranoid and delusional. He is disorganized in his movements, unable to dress himself without prompting and direction. Assessment: What happened this shift: Pt was walking in the hallway interacting with staff at change of shift. Spent evening in his room, he was found to be crying laying in bed. I asked pt why he was upset and he replied, "Oh you know, just things" Pt spoke with his family over the phone and then said "Well I guess shes getting , I guess things happen." Pts appetite is good, he sleeps well at night but usually wakes early in the morning. Continues to be confused. S/I, H/I: Denies A/VH: Denies Sleep: Pt wakes early in the morning. ADL's: Needs prompting Group attendance: Yes Were Meds taken: Yes Any med S/E: None reported or observed Mental Status Exam Appearance: clean, well groomed, dressed in own clothing Eye contact: Direct Behavior: cooperative, pacing, socializing and joking with staff and patients. Speech: Clear Mood: Euthymic with moments of anxiety. Affect: Congruent with affect Thought process: Pt. appeared to be more linear and have greater clarity today with moments of confusion. Thought Content: talking about someone getting Cognition: A/O X 1 Insight: Poor Judgment: Impaired Interventions PRN's used:None Therapeutic interventions: 1:1 assessment, establishment of rapport, maintained safe therapeutic milieu, provided active listening with positive feedback, provided medication education and monitored for effects, monitored for change in behavior and provided needed interventions. Q 15 minute safety checks. Restraints/seclusion/emergency medication: N/A Justification of Continued Inpatient Treatment: Continued therapeutic support and medication management needed to provide stabilization, prevent decompensation, improve coping mechanisms decreasing risk to patient and re-admittance.
[2019-08-04] MEDS: docusate sod 100mg capsule PO SCH ×2 (07:47→20:01)
[2019-08-04] MEDS: busPIRone 15mg tablet PO SCH ×2 (07:47→20:01)
[2019-08-04] MEDS: naproxen 500mg tablet PO SCH (07:47)
[2019-08-04] MEDS: atorvastatin 20mg tablet PO SCH (07:48)
[2019-08-04] MEDS: duloxetine 30mg CAPSULE.DR PO SCH (07:48)
[2019-08-04] MEDS: multivitamins, therapeutics tablet PO SCH (07:49)
[2019-08-04] MEDS: lisinopril 10 MG tablet PO SCH (07:49)
[2019-08-04 08:00] VITALS: BP 121/76
--- NOTE | 2019-08-04 17:30 | NUR ---
Nursing Progress Note Legal hold: VOL Client on involuntary status for DTS Report received from ALEC Sarmiento with use of SBAR. Why are they here: Pt was BIB [facility] on 07/22/13 after daughter called the police on him for being angry and aggressive, making violent threats to blow up the house and threatening to jump in front of a moving vehicle. Pt is confused, only oriented to self. He is paranoid and delusional. He is disorganized in his movements, unable to dress himself without prompting and direction. Assessment: What happened this shift: Pt. awake at start of shift. Pt. took all meds and ate all meals in community room. 1:1 done at bedside. Pt. cracking jokes and smiling. Pt. states, "I would really like to go home". Pt. denies hallucinations. pt. denies SI/HI. Pt. continues to report frustration due to his essential tremors in his legs. Pt. reports pacing the hallway helps that. Pt. seen interacting appropriately with other patients and staff. Pt.'s daughter visited in AM and pt. reported the visit went well. S/I, H/I: Denies A/VH: Denies Sleep: Pt wakes early in the morning. ADL's: Needs prompting Group attendance: Yes Were Meds taken: Yes Any med S/E: None reported or observed Mental Status Exam Appearance: clean, well groomed, dressed in own clothing Eye contact: Direct Behavior: cooperative, pacing, socializing and joking with staff and patients. Speech: Clear Mood: Euthymic with moments of anxiety. Affect: Congruent with affect Thought process: Pt. appeared to be more linear and have greater clarity today with moments of confusion. Thought Content: talking about someone getting Cognition: A/O X 2 Insight: Poor Judgment: Impaired Interventions PRN's used:None Therapeutic interventions: 1:1 assessment, establishment of rapport, maintained safe therapeutic milieu, provided active listening with positive feedback, provided medication education and monitored for effects, monitored for change in behavior and provided needed interventions. Q 15 minute safety checks. Restraints/seclusion/emergency medication: N/A Justification of Continued Inpatient Treatment: Continued therapeutic support and medication management needed to provide stabilization, prevent decompensation, improve coping mechanisms decreasing risk to patient and re-admittance.
[2019-08-04] MEDS: QUEtiapine 25mg tablet PO SCH (18:08)
[2019-08-04] MEDS ORDERED: NICOTINE POLACRILEX 2 MG LOZENGE BC PRN (19:25)
[2019-08-04 19:44] VITALS: BP 114/76
[2019-08-04] MEDS: naproxen sodium 220mg tablet PO PRN (20:21)
--- NOTE | 2019-08-04 21:44 | NUR ---
Nursing Progress Note Legal hold: VOL Client on involuntary status for DTS Report received from ALEC Hinson with use of SBAR. Why are they here: Pt was BIB [facility] on 07/22/13 after daughter called the police on him for being angry and aggressive, making violent threats to blow up the house and threatening to jump in front of a moving vehicle. Pt is confused, only oriented to self. He is paranoid and delusional. He is disorganized in his movements, unable to dress himself without prompting and direction. Assessment: What happened this shift: Pt was walking with another patient in the dangelo at change of shift. Pt is complaining of back and leg pain. Prn given. Pt also requesting a nicotine lozenge. Pt is in a pleasant mood, laughing and joking with staff. Pt talked about his visit with his daughter and says he wants to go home. Pts appetite is good. Pt has been sleeping well. S/I, H/I: Denies A/VH: Denies Sleep: has been sleeping well at night ADL's: Needs prompting Group attendance: Yes Were Meds taken: Yes Any med S/E: None reported or observed Mental Status Exam Appearance: clean, well groomed, dressed in own clothing Eye contact: Direct Behavior: cooperative, pacing, socializing and joking with staff and patients. Speech: Clear Mood: Euthymic with moments of anxiety. Affect: Congruent with affect Thought process: Pt. appeared to be more linear and have greater clarity today with moments of confusion. Thought Content: pt states he is "doing a lot better today" Cognition: A/O X 2 Insight: Poor Judgment: Impaired Interventions PRN's used:None Therapeutic interventions: 1:1 assessment, establishment of rapport, maintained safe therapeutic milieu, provided active listening with positive feedback, provided medication education and monitored for effects, monitored for change in behavior and provided needed interventions. Q 15 minute safety checks. Restraints/seclusion/emergency medication: N/A Justification of Continued Inpatient Treatment: Continued therapeutic support and medication management needed to provide stabilization, prevent decompensation, improve coping mechanisms decreasing risk to patient and re-admittance.
[2019-08-05 07:23] VITALS: BP 110/59
[2019-08-05] MEDS: docusate sod 100mg capsule PO SCH ×2 (08:15→20:04)
[2019-08-05] MEDS: naproxen 500mg tablet PO SCH (08:15)
[2019-08-05] MEDS: multivitamins, therapeutics tablet PO SCH (08:16)
[2019-08-05] MEDS: atorvastatin 20mg tablet PO SCH (08:16)
[2019-08-05] MEDS: busPIRone 15mg tablet PO SCH ×2 (08:16→20:04)
[2019-08-05] MEDS: lisinopril 10 MG tablet PO SCH (08:16)
[2019-08-05] MEDS: duloxetine 30mg CAPSULE.DR PO SCH (08:16)
--- NOTE | 2019-08-05 09:36 | NUR ---
reassessment: Pt PO 75-100% regular diet at this time. LBM 08/05 receiving colace BID with milk of claude THOMAS. Will continue to monitor. Recommend: 1. continue regular diet 2. Continue bowel care 3. weekly weights Addendum: 08/05/19 at [address] Amended: Links added.
--- NOTE | 2019-08-05 17:36 | NUR ---
Nursing Progress Note Legal hold: VOL Client on involuntary status for DTS Report received from ALEC Sarmiento with use of SBAR. Why are they here: Pt was BIB [facility] on 07/22/13 after daughter called the police on him for being angry and aggressive, making violent threats to blow up the house and threatening to jump in front of a moving vehicle. Pt is confused, only oriented to self. He is paranoid and delusional. He is disorganized in his movements, unable to dress himself without prompting and direction. Assessment: What happened this shift: Pt. In bed sleeping at start of shift. Pt awoke and assessed at beginning of shift. 1:1 done at bedside. Pt. took all meds and ate all meals in community room. Pt. more flat today voices desire to discharge. Pt. denies hallucinations. pt. denies SI/HI. Pt. continues to report frustration due to his essential tremors in his legs. Pt. reports pacing the hallway helps that. Pt. seen interacting appropriately with other patients and staff. Pt visible on the unit and attended groups today. S/I, H/I: Denies A/VH: Denies Sleep: Pt wakes early in the morning. ADL's: Needs prompting Group attendance: Yes Were Meds taken: Yes Any med S/E: None reported or observed Mental Status Exam Appearance: clean, well groomed, dressed in own clothing Eye contact: Direct Behavior: cooperative, pacing, socializing and joking with staff and patients. Speech: Clear Mood: Euthymic with moments of anxiety. Affect: Congruent with affect Thought process: Pt. appeared to be more linear and have greater clarity today with moments of confusion. Thought Content: talking about someone getting Cognition: A/O X 2 Insight: Poor Judgment: Impaired Interventions PRN's used:None Therapeutic interventions: 1:1 assessment, establishment of rapport, maintained safe therapeutic milieu, provided active listening with positive feedback, provided medication education and monitored for effects, monitored for change in behavior and provided needed interventions. Q 15 minute safety checks. Restraints/seclusion/emergency medication: N/A Justification of Continued Inpatient Treatment: Continued therapeutic support and medication management needed to provide stabilization, prevent decompensation, improve coping mechanisms decreasing risk to patient and re-admittance.
[2019-08-05] MEDS: QUEtiapine 25mg tablet PO SCH (18:02)
[2019-08-05] MEDS ORDERED: ATOR20TA66 PO (18:27)
[2019-08-05] MEDS ORDERED: COL100C PO (18:27)
[2019-08-05] MEDS ORDERED: DULO60CA65 PO (18:27)
[2019-08-05] MEDS ORDERED: RIVA1.5C PO (18:27)
[2019-08-05] MEDS ORDERED: BUS15T PO (18:27)
[2019-08-05] MEDS ORDERED: QUET25TA34 PO (18:27)
[2019-08-05] MEDS ORDERED: PROP10TA10 PO (18:27)
[2019-08-05] MEDS ORDERED: LISI10TA4 PO (18:27)
[2019-08-05 19:57] VITALS: BP 131/72
--- NOTE | 2019-08-05 22:08 | NUR ---
Nursing Progress Note Legal hold: VOL Client on involuntary status for DTS/GD Report received from ALEC Pacheco with use of SBAR. Why are they here: Pt was BIB [facility] on 07/22/13 after daughter called the police on him for being angry and aggressive, making violent threats to blow up the house and threatening to jump in front of a moving vehicle. Pt is confused, only oriented to self. He is paranoid and delusional. He is disorganized in his movements, unable to dress himself without prompting and direction. Assessment: What happened this shift: Pt visited with daughter for full hour in group room. During 1:1, pt expressed excitement that he will be leaving tomorrow. He denied hallucinations and stated he doesn't feel anxious just ready for bed. Pt is compliant with medications and went to bed shortly after administration. No tremors noted during 1:1. S/I, H/I: Denies A/VH: Denies Sleep: See Sleep Assessment ADL's: Needs prompting but otherwise independent Group attendance: N/A Were Meds taken: Yes Any med S/E: None reported nor observed Mental Status Exam Appearance: Well groomed, wearing personal clothing and nonskid socks Eye contact: Intermittent Behavior: Visiting with dtr in group room, Engaging with staff and peers Speech: Normal rate and rhythm Mood: "I feel okay" Affect: Pleasant Thought process: Pt appeared linear for our 1:1, some minor short-term memory forgetfulness exhibited Thought Content: Excited to discharge tomorrow Cognition: A/O X 2 Insight: Poor Judgment: Impaired Interventions PRN's used:None Therapeutic interventions: 1:1 assessment, establishment of rapport, maintained safe therapeutic milieu, provided active listening with positive feedback, provided medication education and monitored for effects, monitored for change in behavior and provided needed interventions. Q 15 minute safety checks. Restraints/seclusion/emergency medication: N/A Justification of Continued Inpatient Treatment: Continued therapeutic support and medication management needed to provide stabilization, prevent decompensation, improve coping mechanisms decreasing risk to patient and re-admittance.
[2019-08-06] MEDS: naproxen 500mg tablet PO SCH (07:39)
[2019-08-06] MEDS: multivitamins, therapeutics tablet PO SCH (07:39)
[2019-08-06] MEDS: duloxetine 30mg CAPSULE.DR PO SCH (07:39)
[2019-08-06] MEDS: docusate sod 100mg capsule PO SCH (07:39)
[2019-08-06] MEDS: busPIRone 15mg tablet PO SCH (07:39)
[2019-08-06] MEDS: atorvastatin 20mg tablet PO SCH (07:40)
[2019-08-06] MEDS: lisinopril 10 MG tablet PO SCH (07:40)
[2019-08-06 08:00] VITALS: BP 99/66
[2019-08-06] MEDS: naproxen sodium 220mg tablet PO PRN (10:59)
--- NOTE | 2019-08-06 12:29 | NUR ---
Pt was discharged from the unit at 1210. He was ambulating himself in street clothes with all of his personal items in possession per inventory, in no observable distress. Discharge paperwork was reviewed with patient and daughter, questions were answered and Pt and daughter verbalized understanding. Medication prescriptions were included in the discharge packet. Pt is a non-smoker, however, tobacco use and cessation information were made available to the patient.
== END 2019-08-06 12:10 | disposition short-term general hospital (02) | DRG 885 ==
LOC: ADULT MH 14:44
PROVIDERS: ADMIT Psychiatry & Neurology Psychiatry; ATTEND Psychiatry & Neurology Psychiatry
PROC: 4A10X4Z Monitoring of Central Nervous Electrical Activity, External Approach (ICD-10-PCS; principal; 2019-07-29)
DX: F33.3 Major depressive disorder, recurrent, severe with psychotic symptoms (principal); R45.851 Suicidal ideations; E78.00 Pure hypercholesterolemia, unspecified; R07.9 Chest pain, unspecified; G47.9 Sleep disorder, unspecified; F17.210 Nicotine dependence, cigarettes, uncomplicated; M19.90 Unspecified osteoarthritis, unspecified site; E78.5 Hyperlipidemia, unspecified; G31.83 Neurocognitive disorder with Lewy bodies; F02.80 Dementia in other diseases classified elsewhere, unspecified severity, without behavioral disturbance, psychotic disturbance, mood disturbance, and anxiety; G89.29 Other chronic pain; I10 Essential (primary) hypertension; Z82.49 Family history of ischemic heart disease and other diseases of the circulatory system; Z78.1 Physical restraint status; Z95.1 Presence of aortocoronary bypass graft; Z88.2 Allergy status to sulfonamides; Z79.899 Other long term (current) drug therapy
CPT/HCPCS: 36415; 70551; 80053; 80061; 80305; 81003; 83036; 84484; 85025; 87081; 93005; 95816; 99285; J0515; J1200; J1630; J2060; J3490; Q0163; Z7610

== ENCOUNTER 2019-09-02 08:58 | Emergency (ER) | payer MEDICARE, MEDICAID ==
[~2019-09-02] VITALS: Ht 185.4 cm; Wt 97.3 kg
[~2019-09-02 08:58] MED LIST changes: -ALPR0.5T8 PO; -ARIP2TAB20 PO; -BENZ1TAB8 PO; +BUS15T PO; -BUSP30TA2 PO; +COL100C PO; -HYDR50TA65 PO; -LISI-643 PO; +LISI10TA4 PO; -MELO-102 PO; +QUET25TA34 PO; +RIVA1.5C PO; -TRAZ-251 PO
[2019-09-02 09:21] LABS: BASOPHILS # (AUTO) 0.1 X10'3 (0-0.2); BASOPHILS % (AUTO) 1.1 % (0-1); EOSINOPHILS # (AUTO) 0.3 X10'3 (0-0.9); EOSINOPHILS % (AUTO) 3.5 % (0-6); HEMATOCRIT 40.6 % (42.0-52.0); HEMOGLOBIN 13.8 g/dl (14.0-17.9); LYMPHOCYTES # (AUTO) 1.7 X10'3 (1.1-4.8); LYMPHOCYTES % (AUTO) 21.7 % (21-51); MEAN CORPUSCULAR VOLUME 91.2 FL (78-98); MONOCYTES # (AUTO) 0.8 X10'3 (0-0.9); MONOCYTES % (AUTO) 10.4 % (2-12); NEUTROPHILS # (AUTO) 4.9 X10'3 (1.8-7.7); NEUTROPHILS % (AUTO) 63.3 % (42-75); PLATELET COUNT 196 X10'3 (140-440); RED BLOOD COUNT 4.45 X10'6 (4.70-6.10); RED CELL DISTRIBUTION WIDTH 13.7 % (11.5-14.5); WHITE BLOOD COUNT 7.7 X10'3 (4.5-11.0)
[2019-09-02 09:37] LABS: PARTIAL THROMBOPLASTIN TIME 26 SECONDS (22-32)
[2019-09-02 09:44] LABS: ALANINE AMINOTRANSFERASE 42 U/L (12-78); ALBUMIN 3.7 G/DL (3.4-5.0); ALBUMIN/GLOBULIN RATIO 1.1 (1.1-1.5); ALKALINE PHOSPHATASE 70 IU/L (46-116); ANION GAP 8 (8-16); ASPARTATE AMINO TRANSFERASE 23 U/L (10-37); BILIRUBIN,TOTAL 0.5 MG/DL (0.1-1.0); BLOOD UREA NITROGEN 19 MG/DL (7-18); BUN/CREATININE RATIO 20.4 (5.4-32.0); CALCIUM 8.3 MG/DL (8.5-10.1); CHLORIDE 106 MMOL/L (99-107); CREATININE 0.93 MG/DL (0.60-1.10); GLUCOSE 159 MG/DL (70-104); POTASSIUM 3.9 MMOL/L (3.5-5.1); SODIUM 139 MMOL/L (135-145); TOTAL CARBON DIOXIDE 25.4 MMOL/L (24-32); TOTAL PROTEIN 7.1 G/DL (6.4-8.2); TROPONIN I < 0.04 NG/ML (0.0-0.05); eGFR 83 ML/MIN
--- NOTE | 2019-09-02 11:22 | NUR ---
TELE NEURO CONSULT HAS BEEN INITIATED.
[2019-09-02] MEDS ORDERED: QUET25TA34 PO (13:11)
[2019-09-02] MEDS ORDERED: BUSP15TA7 PO (13:11)
[2019-09-02] MEDS ORDERED: DOCU-267 PO (13:11)
[2019-09-02] MEDS ORDERED: PROP10TA10 PO (13:11)
[2019-09-02] MEDS ORDERED: DULO60CA65 PO (13:11)
[2019-09-02] MEDS ORDERED: LISI10TA4 PO (13:11)
[2019-09-02] MEDS ORDERED: ATOR20TA66 PO (13:11)
[2019-09-02] MEDS ORDERED: RIVA1.5C PO (13:14)
[2019-09-02 13:42] LABS: CLARITY,URINE CLEAR (Clear); COLOR,URINE STRAW (Yellow); GLUCOSE, URINE NEGATIVE (Neg); KETONES,URINE NEGATIVE (Neg); LEUKOCYTE ESTERASE ,URINE NEGATIVE (Neg); NITRITES, URINE NEGATIVE (Neg); OCCULT BLOOD,URINE NEGATIVE (Neg); PROTEIN,URINE NEGATIVE (Neg); UROBILINOGEN,URINE 0.2 E.U/dL (0.2-1.0)
[2019-09-02 13:47] LABS: UA COLLECTION TYPE URINAL
[2019-09-02 13:55] LABS: URINE AMPHETAMINE SCREEN NEGATIVE (Neg); URINE BARBITUATE SCREEN NEGATIVE (Neg); URINE BENZODIAZEPINES SCREEN NEGATIVE (Neg); URINE CANNABINOID SCREEN NEGATIVE (Neg); URINE COCAINE SCREEN NEGATIVE (Neg); URINE METHADONE SCREEN NEGATIVE (Neg); URINE OPIATE SCREEN NEGATIVE (Neg); URINE PHENCYCLIDINE SCREEN NEGATIVE (Neg)
[2019-09-02 14:07] LABS: ETHANOL < 0.010 GM/DL (0.0-0.010)
[2019-09-02] MEDS ORDERED: ketorolac tromethamine 15mg/ml inj. IV ONE (15:30)
[2019-09-02 15:57] VITALS: BP 138/67
== END 2019-09-02 16:00 | disposition home or self-care (01) ==
LOC: ER 08:59
DX: R51 Headache (principal); H53.8 Other visual disturbances; R41.0 Disorientation, unspecified; F03.90 Unspecified dementia, unspecified severity, without behavioral disturbance, psychotic disturbance, mood disturbance, and anxiety; E78.00 Pure hypercholesterolemia, unspecified; I10 Essential (primary) hypertension; I25.2 Old myocardial infarction; M19.90 Unspecified osteoarthritis, unspecified site; G89.29 Other chronic pain; Z86.718 Personal history of other venous thrombosis and embolism; Z86.711 Personal history of pulmonary embolism; Z95.1 Presence of aortocoronary bypass graft; Z79.899 Other long term (current) drug therapy; Z88.2 Allergy status to sulfonamides; Z79.01 Long term (current) use of anticoagulants
CPT/HCPCS: 36415; 70450; 70551; 71045; 80053; 80305; 80320; 81003; 82948; 84443; 84484; 85025; 85610; 85730; 93005; 96374; 99284; J1885

== ENCOUNTER 2020-05-30 07:59 | Inpatient (IN) | payer MEDICARE, MEDICAID ==
[2020-05-22 17:01] LABS: BASOPHILS # (AUTO) 0.1 X10'3 (0-0.2); BASOPHILS % (AUTO) 0.8 % (0-1); EOSINOPHILS # (AUTO) 0.3 X10'3 (0-0.9); EOSINOPHILS % (AUTO) 3.1 % (0-6); LYMPHOCYTES # (AUTO) 2.3 X10'3 (1.1-4.8); LYMPHOCYTES % (AUTO) 26.9 % (21-51); MEAN CORPUSCULAR HEMOGLOBIN 30.6 PG (27.0-31.0); MEAN CORPUSCULAR HGB CONC 33.4 g/dL (33.0-36.5); MEAN CORPUSCULAR VOLUME 91.6 FL (78-98); MEAN PLATELET VOLUME 9.3 FL (7.4-10.4); MONOCYTES # (AUTO) 0.9 X10'3 (0-0.9); MONOCYTES % (AUTO) 11.1 % (2-12); NEUTROPHILS # (AUTO) 4.9 X10'3 (1.8-7.7); NEUTROPHILS % (AUTO) 58.1 % (42-75); PRE OP HEMATOCRIT 43.5 % (42.0-52.0); PRE OP HEMOGLOBIN 14.5 g/dL (14.0-17.9); PRE OP PLATELET COUNT 221 X10'3 (140-440); RED BLOOD COUNT 4.75 X10'6 (4.70-6.10); RED CELL DISTRIBUTION WIDTH 13.6 % (11.5-14.5)
[2020-05-22 17:20] LABS: PRE OP PROTIME 10.4 SECONDS (9.0-12.0)
[2020-05-22 17:25] LABS: ALKALINE PHOSPHATASE 70 IU/L (46-116); BLOOD UREA NITROGEN 13 MG/DL (7-18); BUN/CREATININE RATIO 12.6 (5.4-32.0); CALCIUM 9.3 MG/DL (8.5-10.1); CHLORIDE 104 MMOL/L (99-107); CREATININE 1.03 MG/DL (0.60-1.10); PRE OP ALT 32 U/L (30-65); PRE OP ANION GAP 10 (8-16); PRE OP AST 22 U/L (10-37); PRE OP BILIRUB, TOTAL 0.5 MG/DL (0.0-1.0); PRE OP GLUCOSE 96 MG/DL (70-104); PRE OP POTASSIUM 4.3 MMOL/L (3.4-5.1); PRE OP SODIUM 139 MMOL/L (135-145); TOTAL CARBON DIOXIDE 24.7 MMOL/L (24-32); TOTAL PROTEIN 8.1 G/DL (6.4-8.2); eGFR 73 ML/MIN
[2020-05-30] VITALS (19 sets, daily range): BP systolic 93–147; BP diastolic 56–88
[~2020-05-30] VITALS: Ht 182.9 cm; Wt 109.0 kg
[~2020-05-30 07:59] MED LIST changes: +BACL10TA PO; -BUS15T PO; -COL100C PO; +DOCUMENT DATE & TIME OF BETA-BLOCKER PO ONE; +HYDROmorphone 1 mg/ml syringe IV PRN; +HYDROmorphone inj. 0.5 MG/0.5 ML DISP.SYRIN IV PRN; +MELO-100 PO; -MULT-1062 PO; -NAPR220T67 PO; -RIVA1.5C PO; +RIVA1.5C16 PO; +acetaminophen 325mg tablet PO ONE; +acetaminophen 325mg tablet PO PRN; +baclofen 10mg tablet PO PRN; +bisacodyl 10mg suppository rectal RC PRN; +ceFAZolin 2gm in dextrose, iso 50 ML IV ONE; +celeCOXIB 100mg capsule PO ONE; +diphenhydrAMINE 25mg capsule PO PRN; +famotidine 20mg tablet PO ONE; +gabapentin 300mg capsule PO ONE; +magnesium hydroxide 30ml (MOM) UD suspension PO PRN; +metoclopramide 5 mg/ml inj IV ONE; +ondansetron/PF 4mg/2ml inj IV PRN; +oxyCODONE SR 10mg (sust. release) tab -2 tabs (20mg) PO ONE; +ringers solution, lacted 1,000 ML IV SCH; +tranexamic acid inj. 1,000 MG in normal saline 100 ML IV ONE; +vancomycin 1,500 MG in NS 300ml IV soln IV ONE
[2020-05-30] MEDS: propranolol 10mg tablet PO SCH ×2 (08:00→20:09)
[2020-05-30] MEDS ORDERED: epiNEPHrine 1 mg/ml inj ONE (09:38)
[2020-05-30] MEDS ORDERED: cloNIDine hcl/PF 100mcg/ml inj ONE (09:38)
[2020-05-30] MEDS ORDERED: ketorolac trometh. 30mg/ml inj. ONE (09:38)
[2020-05-30] MEDS ORDERED: ROPIVAcaine 0.5% (5mg/ml) 30ml vial ONE ×2 (09:39→10:54)
[2020-05-30] MEDS ORDERED: vancomycin 1,000mg inj ONE (09:39)
[2020-05-30] MEDS ORDERED: MIDAZolam 1mg/ml 10ml vial ONE (10:17)
[2020-05-30] MEDS ORDERED: ringers solution, lacted 1,000 ML IV SCH (10:33)
[2020-05-30] MEDS ORDERED: HYDROmorphone inj. 0.5 MG/0.5 ML DISP.SYRIN IV PRN ×2 (10:35)
[2020-05-30] MEDS ORDERED: morphine 2 MG/ML inj. syringe IV PRN (10:35)
[2020-05-30] MEDS ORDERED: morphine 4 MG/ML inj SYRINge IV PRN (10:35)
[2020-05-30] MEDS ORDERED: ondansetron/PF 4mg/2ml inj IV PRN (10:35)
[2020-05-30] MEDS ORDERED: meperidine/PF 25mg/ml syringe IV PRN (10:35)
[2020-05-30] MEDS ORDERED: proCHLORperazine 10 MG/2 ml inj IV PRN (10:35)
[2020-05-30] MEDS ORDERED: acetaminophen 1,000mg/100ml IV 100 ML IV PRN (10:35)
[2020-05-30] MEDS ORDERED: propofol inj 20 ML IV ONE ×2 (10:51)
[2020-05-30] MEDS ORDERED: ePHEDrine 50MG/ML INJ. ONE (10:51)
[2020-05-30] MEDS ORDERED: 0.9 % SODIUM CHLORIDE 10 ML VIAL ONE (10:51)
[2020-05-30] MEDS ORDERED: phenylephrine 10mg/ml inj. ONE (10:51)
[2020-05-30] MEDS ORDERED: ROPIVAcaine 0.2% (10 MG/5 ML) BOLUS INJECTION ADDCANAL PRN (12:00)
--- NOTE | 2020-05-30 12:15 | NUR ---
Received from OR via BED , accompanied by Anesthesiologist DR MUKHERJEE and report given by Anesthesiolgist. PATIENT WAKING UP, DENIES PAIN, V/S WNL, NEUROVASCULAR CHECKS INTACT, 18G PIV LUE , JOE DRESSING TO LEFT KNEE CDI W/ COLD POWDER PACK AND ON QUE PUMP AT 4ML/HR , SENSATION T-11.
--- NOTE | 2020-05-30 13:25 | NUR ---
PATIENT A&OX4, DENIES PAIN, V/S WNL, NEUROVASCULAR CHECKS INTACT, 18G PIV LUE , JOE DRESSING TO LEFT KNEE CDI W/ COLD POWDER PACK AND ON QUE PUMP AT 4ML/HR , SENSATION T-11. PATIENT TAKEN TO 4014B WITH ALL BELONGINGS AND HOOKED UP TO MONITORS IN ROOM AND REPORT GIVEN TO CUSHION COVER INSPECTOR WHO HAS TAKEN OVER PATIENT CARE.
[2020-05-30] MEDS: ROPIVAcaine 0.2%/PF PUMP/bolus 550 ML ADDCANAL SCH (13:26)
[2020-05-30] MEDS: potassium cl 20mEq in 1/2 NS 1,000 ML IV SCH ×3 (14:50→22:39)
[2020-05-30] MEDS: oxyCODONE/APAP 10/325mg tablet PO PRN ×2 (16:39→21:25)
[2020-05-30] MEDS: cefazolin/dext.iso 2gm/50ml 50 ML IV SCH (16:39)
--- NOTE | 2020-05-30 18:13 | NUR ---
Report given to Frieda MICHAEL
[2020-05-30] MEDS ORDERED: tranexamic acid 1gm/0.7% sal. 100 ML IV ONE (19:00)
[2020-05-30] MEDS: QUEtiapine 25mg tablet PO SCH (20:08)
[2020-05-30] MEDS: ascorbic acid 500mg tablet PO SCH (20:08)
[2020-05-30] MEDS: gabapentin 300mg capsule PO SCH (20:08)
[2020-05-30] MEDS: sennosides 8.6mg tablet PO SCH (20:08)
[2020-05-30] MEDS: duloxetine 30mg CAPSULE.DR PO SCH (20:08)
[2020-05-30] MEDS ORDERED: VANCOMYCIN 1,500MG inj. 1,500 MG in normal saline 250ml IV soln 300 ML IV SCH (23:00)
[2020-05-31] MEDS: cefazolin/dext.iso 2gm/50ml 50 ML IV SCH (00:46)
[2020-05-31 02:00] VITALS: BP 120/66
[2020-05-31] MEDS: oxyCODONE/APAP 10/325mg tablet PO PRN ×2 (04:52→15:06)
[2020-05-31 06:00] VITALS: BP 128/73
[2020-05-31 06:24] LABS: BASOPHILS # (AUTO) 0.1 X10'3 (0-0.2); BASOPHILS % (AUTO) 0.6 % (0-1); EOSINOPHILS # (AUTO) 0.3 X10'3 (0-0.9); EOSINOPHILS % (AUTO) 3.3 % (0-6); HEMATOCRIT 38.5 % (42.0-52.0); HEMOGLOBIN 12.7 g/dl (14.0-17.9); LYMPHOCYTES # (AUTO) 1.7 X10'3 (1.1-4.8); LYMPHOCYTES % (AUTO) 18.4 % (21-51); MEAN CORPUSCULAR HEMOGLOBIN 30.7 PG (27.0-31.0); MEAN CORPUSCULAR HGB CONC 33.1 g/dL (33.0-36.5); MEAN CORPUSCULAR VOLUME 92.7 FL (78-98); MONOCYTES # (AUTO) 1.3 X10'3 (0-0.9); MONOCYTES % (AUTO) 13.9 % (2-12); NEUTROPHILS % (AUTO) 63.8 % (42-75); PLATELET COUNT 174 X10'3 (140-440); RED BLOOD COUNT 4.15 X10'6 (4.70-6.10); RED CELL DISTRIBUTION WIDTH 13.4 % (11.5-14.5); WHITE BLOOD COUNT 9.3 X10'3 (4.5-11.0)
[2020-05-31 06:33] LABS: ANION GAP 8 (8-16); CHLORIDE 107 MMOL/L (99-107); POTASSIUM 4.4 MMOL/L (3.5-5.1); SODIUM 140 MMOL/L (135-145); TOTAL CARBON DIOXIDE 25.1 MMOL/L (24-32)
[2020-05-31] MEDS: potassium cl 20mEq in 1/2 NS 1,000 ML IV SCH ×3 (06:50→22:50)
--- NOTE | 2020-05-31 07:00 | NUR ---
Patient in room ORTHO 4014B. I have received report from Frieda Kinsey RN and had the opportunity to ask questions and assume patient care.
[2020-05-31] MEDS ORDERED: aspirin 325mg tablet PO SCH (08:30)
[2020-05-31] MEDS: duloxetine 30mg CAPSULE.DR PO SCH ×2 (08:36→20:34)
[2020-05-31] MEDS: gabapentin 300mg capsule PO SCH ×3 (08:37→20:34)
[2020-05-31] MEDS: propranolol 10mg tablet PO SCH ×2 (08:37→20:38)
[2020-05-31] MEDS: atorvastatin 20mg tablet PO SCH (08:37)
[2020-05-31] MEDS: multivitamins, therapeutics tablet PO SCH (08:38)
[2020-05-31] MEDS: ascorbic acid 500mg tablet PO SCH ×2 (08:38→20:34)
[2020-05-31] MEDS: lisinopril 20mg tablet PO SCH (08:39)
[2020-05-31] MEDS: enoxaparin 30mg/0.3ml syringe SUBCUT SCH (08:39)
[2020-05-31 10:00] VITALS: BP 114/64
--- NOTE | 2020-05-31 11:34 | NUR ---
Joint Replacement Consult: Pt seen by ERNESTO for written/verbal high protein ed w/ RD contact information provided. Pt is agreeable to double eggs at breakfast and double meats BIDLD; dietary notified. Addendum: 05/31/20 at [address] Amended: Links added.
[2020-05-31 14:00] VITALS: BP 172/85
[2020-05-31 18:00] VITALS: BP 177/80
--- NOTE | 2020-05-31 18:35 | NUR ---
Problems reprioritized. Patient report given, questions answered & plan of care reviewed with ALEC Malave.
[2020-05-31] MEDS: QUEtiapine 25mg tablet PO SCH (20:34)
[2020-05-31] MEDS: celeCOXIB 100mg capsule PO SCH (20:34)
[2020-05-31] MEDS: sennosides 8.6mg tablet PO SCH (20:34)
[2020-05-31 22:00] VITALS: BP 111/65
[2020-06-01] MEDS: oxyCODONE/APAP 10/325mg tablet PO PRN (02:22)
[2020-06-01 06:00] VITALS: BP 120/56
[2020-06-01 06:17] LABS: BASOPHILS % (AUTO) 0.5 % (0-1); EOSINOPHILS # (AUTO) 0.2 X10'3 (0-0.9); EOSINOPHILS % (AUTO) 1.7 % (0-6); HEMATOCRIT 35.4 % (42.0-52.0); HEMOGLOBIN 11.9 g/dl (14.0-17.9); LYMPHOCYTES # (AUTO) 1.7 X10'3 (1.1-4.8); LYMPHOCYTES % (AUTO) 17.9 % (21-51); MEAN CORPUSCULAR HGB CONC 33.6 g/dL (33.0-36.5); MEAN CORPUSCULAR VOLUME 92.2 FL (78-98); MEAN PLATELET VOLUME 9.2 FL (7.4-10.4); MONOCYTES # (AUTO) 1.6 X10'3 (0-0.9); MONOCYTES % (AUTO) 16.2 % (2-12); NEUTROPHILS # (AUTO) 6.2 X10'3 (1.8-7.7); NEUTROPHILS % (AUTO) 63.7 % (42-75); PLATELET COUNT 164 X10'3 (140-440); RED BLOOD COUNT 3.84 X10'6 (4.70-6.10); RED CELL DISTRIBUTION WIDTH 13.3 % (11.5-14.5); WHITE BLOOD COUNT 9.8 X10'3 (4.5-11.0)
--- NOTE | 2020-06-01 06:30 | NUR ---
Patient in room ORTHO 4009A. I have received report from Frieda Kinsey RN and had the opportunity to ask questions and assume patient care.
[2020-06-01] MEDS: celeCOXIB 100mg capsule PO SCH ×2 (07:27→20:17)
[2020-06-01] MEDS: duloxetine 30mg CAPSULE.DR PO SCH ×2 (07:27→20:18)
[2020-06-01] MEDS: atorvastatin 20mg tablet PO SCH (07:28)
[2020-06-01] MEDS: propranolol 10mg tablet PO SCH ×2 (07:28→20:18)
[2020-06-01] MEDS: gabapentin 300mg capsule PO SCH ×3 (07:28→20:17)
[2020-06-01] MEDS: multivitamins, therapeutics tablet PO SCH (07:29)
[2020-06-01] MEDS: lisinopril 20mg tablet PO SCH (07:29)
[2020-06-01] MEDS: ascorbic acid 500mg tablet PO SCH ×2 (07:29→20:18)
[2020-06-01] MEDS: enoxaparin 30mg/0.3ml syringe SUBCUT SCH (07:30)
[2020-06-01] MEDS ORDERED: ENOX30DI4 SUBCUT (07:45)
[2020-06-01] MEDS ORDERED: ONQPUMP ADDCANAL (07:45)
[2020-06-01 07:50] LABS: TOTAL CELLS COUNTED 100
[2020-06-01 07:51] LABS: PLATELET ESTIMATE NORMAL; SMUDGE CELLS FEW; TOXIC GRANULATION 1+; TOXIC VACUOLATION FEW
[2020-06-01 07:52] LABS: LARGE PLATELETS FEW; SPHEROCYTES 1+
[2020-06-01 10:00] VITALS: BP 101/58
[2020-06-01] MEDS: ROPIVAcaine 0.2%/PF PUMP/bolus 550 ML ADDCANAL SCH (17:38)
--- NOTE | 2020-06-01 17:56 | NUR ---
daughter, Mi came today so physical therapy could instruct her on how to help pt at home, while she was here I also gave her instructions on the JOE dressing and On Q pump. 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
[2020-06-01 18:00] VITALS: BP 131/65
--- NOTE | 2020-06-01 18:00 | NUR ---
Patient in room ORTHO 4021. I have received report from ALEC Callejas and had the opportunity to ask questions and assume patient care. Addendum: 06/01/20 at 1835 by Laureen Hercules RN Amended: Links added.
[2020-06-01] MEDS: sennosides 8.6mg tablet PO SCH (20:17)
[2020-06-01] MEDS: QUEtiapine 25mg tablet PO SCH (20:17)
[2020-06-01 22:00] VITALS: BP 122/68
[2020-06-02] MEDS: oxyCODONE/APAP 10/325mg tablet PO PRN ×2 (03:37→15:56)
[2020-06-02 06:10] VITALS: BP 128/83
[2020-06-02 06:10] LABS: BASOPHILS # (AUTO) 0.1 X10'3 (0-0.2); BASOPHILS % (AUTO) 0.5 % (0-1); EOSINOPHILS # (AUTO) 0.1 X10'3 (0-0.9); EOSINOPHILS % (AUTO) 1.1 % (0-6); HEMATOCRIT 34.3 % (42.0-52.0); HEMOGLOBIN 11.2 g/dl (14.0-17.9); LYMPHOCYTES # (AUTO) 1.5 X10'3 (1.1-4.8); LYMPHOCYTES % (AUTO) 14.7 % (21-51); MEAN CORPUSCULAR HGB CONC 32.7 g/dL (33.0-36.5); MEAN CORPUSCULAR VOLUME 91.7 FL (78-98); MEAN PLATELET VOLUME 9.4 FL (7.4-10.4); MONOCYTES # (AUTO) 1.5 X10'3 (0-0.9); MONOCYTES % (AUTO) 14.4 % (2-12); NEUTROPHILS # (AUTO) 7.1 X10'3 (1.8-7.7); NEUTROPHILS % (AUTO) 69.3 % (42-75); PLATELET COUNT 177 X10'3 (140-440); RED BLOOD COUNT 3.74 X10'6 (4.70-6.10); RED CELL DISTRIBUTION WIDTH 13.3 % (11.5-14.5); WHITE BLOOD COUNT 10.3 X10'3 (4.5-11.0)
--- NOTE | 2020-06-02 06:24 | NUR ---
Patient in room ORTHO 4021. I have received report from Laureen MICHAEL and had the opportunity to ask questions and assume patient care.
--- NOTE | 2020-06-02 06:29 | NUR ---
Problems reprioritized. Patient report given, questions answered & plan of care reviewed with ALEC Arce. Addendum: 06/02/20 at 0629 by Laureen Hercules RN Amended: Links added.
[2020-06-02] MEDS: propranolol 10mg tablet PO SCH (08:00)
[2020-06-02] MEDS: lisinopril 20mg tablet PO SCH (08:00)
[2020-06-02] MEDS: atorvastatin 20mg tablet PO SCH (08:26)
[2020-06-02] MEDS: celeCOXIB 100mg capsule PO SCH (08:26)
[2020-06-02] MEDS: duloxetine 30mg CAPSULE.DR PO SCH (08:26)
[2020-06-02] MEDS: ascorbic acid 500mg tablet PO SCH (08:26)
[2020-06-02] MEDS: multivitamins, therapeutics tablet PO SCH (08:26)
[2020-06-02] MEDS: gabapentin 300mg capsule PO SCH ×2 (08:26→12:55)
[2020-06-02] MEDS: enoxaparin 30mg/0.3ml syringe SUBCUT SCH (08:29)
[2020-06-02 10:00] VITALS: BP 122/64
[2020-06-02] MEDS: ROPIVAcaine 0.2%/PF PUMP/bolus 550 ML ADDCANAL SCH (15:56)
--- NOTE | 2020-06-02 16:30 | NUR ---
Patient discharged with Daughter Mi at this time. Trista already taught DC instructions previously but I reinforced the teaching and she understood. Patient take to vehicle in wheel chair where I met the daughter, he was pre-medicated with a percoset 10mg and he had all of his belongings.
== END 2020-06-02 16:20 | disposition home or self-care (01) | DRG 470 ==
LOC: PRE-OP 07:59 → ORTHO 4S 15:40 → OBSVTOIN 05-31 15:50 → ORTHO 4S 05-31 18:41
PROVIDERS: ADMIT Orthopaedic Surgery; ATTEND Orthopaedic Surgery
PROC: 0SRD0J9 Replacement of Left Knee Joint with Synthetic Substitute, Cemented, Open Approach (ICD-10-PCS; principal; 2020-05-31)
DX: M17.12 Unilateral primary osteoarthritis, left knee (principal); D62 Acute posthemorrhagic anemia; M25.562 Pain in left knee; I25.10 Atherosclerotic heart disease of native coronary artery without angina pectoris; F32.9 Major depressive disorder, single episode, unspecified; G31.83 Neurocognitive disorder with Lewy bodies; F02.80 Dementia in other diseases classified elsewhere, unspecified severity, without behavioral disturbance, psychotic disturbance, mood disturbance, and anxiety; E78.5 Hyperlipidemia, unspecified
CPT/HCPCS: 36415; 73560; 80051; 80053; 82948; 85025; 85610; 85730; 86885; 86900; 86901; 87081; 97110; 97116; 97161; 97530; 97535; A4215; A6449; A6454; A7000; C1713; C1776; G0378; J0171; J0735; J1650; J1885; J2250; J2370; J2704; J2765; J2795; J3370; J3480; J7040; J7050; J7120

== ENCOUNTER 2020-06-05 01:17 | Emergency (ER) | payer MEDICARE, MEDICAID ==
[~2020-06-05] VITALS: Ht 182.9 cm; Wt 240.0 kg
[~2020-06-05 01:17] MED LIST changes: -DOCUMENT DATE & TIME OF BETA-BLOCKER PO ONE; +ENOX30DI4 SUBCUT; -HYDROmorphone 1 mg/ml syringe IV PRN; -HYDROmorphone inj. 0.5 MG/0.5 ML DISP.SYRIN IV PRN; +ONQPUMP ADDCANAL; -acetaminophen 325mg tablet PO ONE; -acetaminophen 325mg tablet PO PRN; -baclofen 10mg tablet PO PRN; -bisacodyl 10mg suppository rectal RC PRN; -ceFAZolin 2gm in dextrose, iso 50 ML IV ONE; -celeCOXIB 100mg capsule PO ONE; -diphenhydrAMINE 25mg capsule PO PRN; -famotidine 20mg tablet PO ONE; -gabapentin 300mg capsule PO ONE; -magnesium hydroxide 30ml (MOM) UD suspension PO PRN; -metoclopramide 5 mg/ml inj IV ONE; -ondansetron/PF 4mg/2ml inj IV PRN; -oxyCODONE SR 10mg (sust. release) tab -2 tabs (20mg) PO ONE; -ringers solution, lacted 1,000 ML IV SCH; -tranexamic acid inj. 1,000 MG in normal saline 100 ML IV ONE; -vancomycin 1,500 MG in NS 300ml IV soln IV ONE
[2020-06-05 02:46] VITALS: BP 157/89
== END 2020-06-05 02:47 | disposition home or self-care (01) ==
LOC: ER 01:18
DX: S80.02XA Contusion of left knee, initial encounter (principal); M96.830 Postprocedural hemorrhage of a musculoskeletal structure following a musculoskeletal system procedure; E78.00 Pure hypercholesterolemia, unspecified; I10 Essential (primary) hypertension; I25.2 Old myocardial infarction; M19.90 Unspecified osteoarthritis, unspecified site; G89.29 Other chronic pain; F41.9 Anxiety disorder, unspecified; F32.9 Major depressive disorder, single episode, unspecified; Z86.718 Personal history of other venous thrombosis and embolism; Z86.711 Personal history of pulmonary embolism; Z95.1 Presence of aortocoronary bypass graft; Z88.2 Allergy status to sulfonamides; Z79.899 Other long term (current) drug therapy; X58.XXXA Exposure to other specified factors, initial encounter; Y93.89 Activity, other specified; Y92.89 Other specified places as the place of occurrence of the external cause; Y99.8 Other external cause status
CPT/HCPCS: 99284

== ENCOUNTER 2020-10-02 12:25 | Outpatient (CLI) | payer MEDICARE, MEDICAID ==
[2020-10-02] VITALS (21 sets, daily range): BP systolic 62–183; BP diastolic 35–87
== END 2020-10-02 23:59 | disposition home or self-care (01) ==
LOC: CARD DIAG 12:25
PROVIDERS: ATTEND Internal Medicine Cardiovascular Disease
DX: R42 Dizziness and giddiness (principal)
CPT/HCPCS: 93660

== ENCOUNTER 2020-11-06 17:05 | Emergency (ER) | payer MEDICARE, MEDICAID ==
[~2020-11-06] VITALS: Ht 185.4 cm; Wt 105.5 kg
[2020-11-06 17:36] VITALS: BP 148/80
[2020-11-06] MEDS ORDERED: cyclobenzaprine 10mg tablet PO ONE (18:30)
[2020-11-06] MEDS ORDERED: HYDROcodone/acetaminophen 5mg/325mg tablet PO ONE (18:30)
[2020-11-06] MEDS ORDERED: ketorolac trometh inj. 60 MG/2 ML VIAL IM ONE (18:30)
[2020-11-06] MEDS ORDERED: CYCL-1 PO (18:47)
[2020-11-06] MEDS ORDERED: TRAM50TA2 PO (18:47)
== END 2020-11-06 19:01 | disposition home or self-care (01) ==
LOC: ER 17:06
DX: G89.29 Other chronic pain (principal); M54.9 Dorsalgia, unspecified; M54.41 Lumbago with sciatica, right side; K59.00 Constipation, unspecified; I10 Essential (primary) hypertension; E78.00 Pure hypercholesterolemia, unspecified; F41.9 Anxiety disorder, unspecified; F32.9 Major depressive disorder, single episode, unspecified; Z95.1 Presence of aortocoronary bypass graft; Z88.2 Allergy status to sulfonamides; Z79.899 Other long term (current) drug therapy
CPT/HCPCS: 72100; 96372; 99283; J1885

== ENCOUNTER 2022-07-18 15:38 | Emergency (ER) | payer MEDICARE, MEDICAID ==
[~2022-07-18] VITALS: Ht 185.4 cm; Wt 110.5 kg
[~2022-07-18 15:38] MED LIST changes: -BACL10TA PO; +BUSP30TA2 PO; +CYCL-1 PO; +DONE-46 PO; -ENOX30DI4 SUBCUT; +GABA300C PO; +LISI10TA27 PO; -LISI10TA4 PO; -MELO-100 PO; +MIRT7.5T11 PO; -ONQPUMP ADDCANAL; +PRIM50TA27 PO; -PROP10TA10 PO; -QUET25TA34 PO; -RIVA1.5C16 PO; +RIVA1.5C30 PO
[2022-07-18 15:56] VITALS: BP 129/72
[2022-07-18 18:51] LABS: EOSINOPHILS # (AUTO) 0.2 X10'3 (0-0.9); PLATELET COUNT 218 X10'3 (140-440)
[2022-07-18 18:54] LABS: BASOPHILS # (AUTO) 0.1 X10'3 (0-0.2); BASOPHILS % (AUTO) 0.9 % (0-1); EOSINOPHILS % (AUTO) 2.1 % (0-6); HEMATOCRIT 46.7 % (42.0-52.0); HEMOGLOBIN 15.6 g/dl (14.0-17.9); LYMPHOCYTES % (AUTO) 22.2 % (21-51); MEAN CORPUSCULAR HEMOGLOBIN 31.2 PG (27.0-31.0); MEAN CORPUSCULAR HGB CONC 33.3 g/dL (33.0-36.5); MEAN CORPUSCULAR VOLUME 93.5 FL (78-98); MEAN PLATELET VOLUME 9.8 FL (7.4-10.4); NEUTROPHILS # (AUTO) 5.7 X10'3 (1.8-7.7); NEUTROPHILS % (AUTO) 63.8 % (42-75); RED BLOOD COUNT 4.99 X10'6 (4.70-6.10); RED CELL DISTRIBUTION WIDTH 13.8 % (11.5-14.5); WHITE BLOOD COUNT 8.9 X10'3 (4.5-11.0)
[2022-07-18 19:09] LABS: ALANINE AMINOTRANSFERASE 36 U/L (12-78); ALBUMIN 4.2 G/DL (3.4-5.0); ALBUMIN/GLOBULIN RATIO 1.2 (1.1-1.5); ALKALINE PHOSPHATASE 82 IU/L (46-116); ANION GAP 11 (8-16); ASPARTATE AMINO TRANSFERASE 30 U/L (10-37); BILIRUBIN,TOTAL 0.4 MG/DL (0.1-1.0); BLOOD UREA NITROGEN 23 MG/DL (7-18); BUN/CREATININE RATIO 21.1 (5.4-32.0); CALCIUM 9.3 MG/DL (8.5-10.1); CHLORIDE 105 MMOL/L (99-107); CREATININE 1.09 MG/DL (0.60-1.10); GLUCOSE 91 MG/DL (70-104); POTASSIUM 4.1 MMOL/L (3.5-5.1); SODIUM 142 MMOL/L (135-145); TOTAL PROTEIN 7.7 G/DL (6.4-8.2); eGFR 68 ML/MIN
== END 2022-07-18 22:25 | disposition left against medical advice (07) ==
LOC: ER 15:38
DX: R42 Dizziness and giddiness (principal); Z53.21 Procedure and treatment not carried out due to patient leaving prior to being seen by health care provider
CPT/HCPCS: 80053; 85025

== ENCOUNTER → 2022-08-15 | Emergency (ER) | payer MEDICARE, MEDICAID ==
[~2022-08-15] VITALS: Ht 185.4 cm; Wt 90.9 kg
[2022-08-15 15:00] VITALS: BP 154/95
[2022-08-15 15:54] LABS: BASOPHILS # (AUTO) 0.1 X10'3 (0-0.2); BASOPHILS % (AUTO) 0.9 % (0-1); EOSINOPHILS # (AUTO) 0.1 X10'3 (0-0.9); EOSINOPHILS % (AUTO) 0.4 % (0-6); HEMATOCRIT 42.9 % (42.0-52.0); HEMOGLOBIN 14.1 g/dl (14.0-17.9); LYMPHOCYTES # (AUTO) 1.4 X10'3 (1.1-4.8); LYMPHOCYTES % (AUTO) 10.9 % (21-51); MEAN CORPUSCULAR HEMOGLOBIN 31.1 PG (27.0-31.0); MEAN CORPUSCULAR HGB CONC 32.8 g/dL (33.0-36.5); MEAN CORPUSCULAR VOLUME 94.7 FL (78-98); MEAN PLATELET VOLUME 9.4 FL (7.4-10.4); MONOCYTES # (AUTO) 1.1 X10'3 (0-0.9); MONOCYTES % (AUTO) 8.4 % (2-12); NEUTROPHILS # (AUTO) 10.1 X10'3 (1.8-7.7); NEUTROPHILS % (AUTO) 79.4 % (42-75); PLATELET COUNT 270 X10'3 (140-440); RED BLOOD COUNT 4.53 X10'6 (4.70-6.10); RED CELL DISTRIBUTION WIDTH 13.5 % (11.5-14.5); WHITE BLOOD COUNT 12.8 X10'3 (4.5-11.0)
[2022-08-15 16:18] LABS: ALANINE AMINOTRANSFERASE 15 U/L (12-78); ALBUMIN/GLOBULIN RATIO 1.1 (1.1-1.5); ALKALINE PHOSPHATASE 100 IU/L (46-116); ANION GAP 14 (8-16); ASPARTATE AMINO TRANSFERASE 51 U/L (10-37); BILIRUBIN,TOTAL 0.7 MG/DL (0.1-1.0); BLOOD UREA NITROGEN 63 MG/DL (7-18); BUN/CREATININE RATIO 13.5 (5.4-32.0); CALCIUM 9.2 MG/DL (8.5-10.1); CHLORIDE 103 MMOL/L (99-107); CREATININE 4.68 MG/DL (0.60-1.10); ETHANOL < 0.010 GM/DL (0.0-0.010); GLUCOSE 107 MG/DL (70-104); POTASSIUM 5.4 MMOL/L (3.5-5.1); SODIUM 136 MMOL/L (135-145); TOTAL CARBON DIOXIDE 19.2 MMOL/L (24-32); TOTAL PROTEIN 7.8 G/DL (6.4-8.2); eGFR 13 ML/MIN
--- NOTE | 2022-08-15 21:30 | NUR ---
pt stated he would return tomarrow. pt seen leaving the er by staff md informed
--- NOTE | 2022-08-15 21:50 | NUR ---
TC TO PATIENT'S DAUGHTER, VIVIAN. PATIENT WAS TIRED OF WAITING IN THE LOBBY AND LEFT FROM ER AROUND 1999. VIVIAN STATES THAT HER FATHER WANTS TO FOLLOW UP WITH DR. KOENIG (PCP) IN REGARDS TO HIS COMPLAINTS. VIVIAN INFORMED THAT THEY SHOULD RETURN TO ER, IF HER FATHER'S CONDITION WARRANTS EVALUATION OR IF THEY CANNOT GET IN TO SEE DR. KOENIG.
== END | disposition home or self-care (01) ==
LOC: ER 14:08
DX: R42 Dizziness and giddiness (principal); Z53.21 Procedure and treatment not carried out due to patient leaving prior to being seen by health care provider
CPT/HCPCS: 70450; 71045; 80053; 80320; 82140; 85025

== ENCOUNTER 2023-08-01 11:40 | Day surgery (SDC) | payer OTHER, MEDICAID ==
[2023-07-22 11:43] LABS: BASOPHILS # (AUTO) 0.1 X10'3 (0-0.2); BASOPHILS % (AUTO) 1.1 % (0-1); EOSINOPHILS # (AUTO) 0.2 X10'3 (0-0.9); EOSINOPHILS % (AUTO) 2.7 % (0-6); HEMATOCRIT 41.1 % (42.0-52.0); HEMOGLOBIN 13.7 g/dl (14.0-17.9); LYMPHOCYTES # (AUTO) 1.8 X10'3 (1.1-4.8); LYMPHOCYTES % (AUTO) 25.4 % (21-51); MEAN CORPUSCULAR HEMOGLOBIN 31.8 PG (27.0-31.0); MEAN CORPUSCULAR HGB CONC 33.4 g/dL (33.0-36.5); MEAN CORPUSCULAR VOLUME 95.2 FL (78-98); MEAN PLATELET VOLUME 8.8 FL (7.4-10.4); MONOCYTES # (AUTO) 0.7 X10'3 (0-0.9); MONOCYTES % (AUTO) 9.9 % (2-12); NEUTROPHILS # (AUTO) 4.3 X10'3 (1.8-7.7); NEUTROPHILS % (AUTO) 60.9 % (42-75); PLATELET COUNT 197 X10'3 (140-440); RED BLOOD COUNT 4.32 X10'6 (4.70-6.10); WHITE BLOOD COUNT 7.1 X10'3 (4.5-11.0)
[2023-07-22 11:46] LABS: ALBUMIN 3.5 G/DL (3.4-5.0); ANION GAP 6 (8-16); BLOOD UREA NITROGEN 17 MG/DL (7-18); BUN/CREATININE RATIO 23.9 (10.0-20.0); CALCIUM 8.7 MG/DL (8.5-10.1); CHLORIDE 106 MMOL/L (99-107); CREATININE 0.71 MG/DL (0.60-1.10); GLUCOSE 109 MG/DL (70-104); POTASSIUM 3.9 MMOL/L (3.5-5.1); SODIUM 140 MMOL/L (135-145); TOTAL CARBON DIOXIDE 28.1 MMOL/L (24-32); eGFR > 90 ML/MIN
[~2023-08-01] VITALS: Ht 185.4 cm; Wt 89.0 kg
[2023-08-01] MEDS ORDERED: LORazepam 0.5 MG tablet PO PRN (12:00)
[2023-08-01] MEDS ORDERED: diphenhydrAMINE 25mg capsule PO PRN (12:00)
[2023-08-01] MEDS ORDERED: normal saline 1,000 ML IV SCH (12:00)
[2023-08-01] MEDS ORDERED: LIDOcaine 1% 30ml preserv. free vial ONE (12:09)
[2023-08-01] MEDS ORDERED: iohexol 350 MG/ML 50ML vial IV ONE (12:09)
[2023-08-01] MEDS ORDERED: verapamil 2.5 mg/ml inj IV ONE (12:09)
[2023-08-01] MEDS ORDERED: midazolam 1 mg/ML 2ml injection ONE (12:09)
[2023-08-01] MEDS ORDERED: iohexol 350MG/ML 100ml bottle IV ONE (12:09)
[2023-08-01] MEDS ORDERED: heparin 1,000unit/ml 10ml vial 10 ML ONE (12:09)
[2023-08-01] MEDS ORDERED: LIDOcaine 1% (10mg/ml) 2ml vial ONE (12:09)
[2023-08-01] MEDS ORDERED: fentaNYL/PF 50MCG/1 ML 2ML syringe ONE (12:09)
[2023-08-01] MEDS ORDERED: nitroGLYCERIN 500mcg/5mL D5W 5 ML IV ONE (12:10)
[2023-08-01] MEDS ORDERED: CARB1TAB36 PO (12:21)
[2023-08-01] MEDS ORDERED: DONE10TA44 PO (12:21)
[2023-08-01] MEDS ORDERED: PANT40TA54 PO (12:21)
[2023-08-01] MEDS ORDERED: LISI20TA28 PO (12:21)
[2023-08-01] MEDS ORDERED: ATOR40TA72 PO (12:21)
[2023-08-01] MEDS ORDERED: APIX5TAB3 PO (12:21)
[2023-08-01] MEDS ORDERED: BUSP30TA3 PO (12:21)
[2023-08-01] MEDS ORDERED: ENTA200T5 PO (12:21)
[2023-08-01] MEDS ORDERED: PROP60CA37 PO (12:25)
[2023-08-01 12:30] VITALS: RESP 14
[2023-08-01 12:56] LABS: BASOPHILS % (AUTO) 0.5 % (0-1); EOSINOPHILS # (AUTO) 0.2 X10'3 (0-0.9); HEMATOCRIT 44.7 % (42.0-52.0); HEMOGLOBIN 14.7 g/dl (14.0-17.9); LYMPHOCYTES # (AUTO) 1.8 X10'3 (1.1-4.8); LYMPHOCYTES % (AUTO) 22.1 % (21-51); MEAN CORPUSCULAR HEMOGLOBIN 31.3 PG (27.0-31.0); MEAN CORPUSCULAR HGB CONC 32.8 g/dL (33.0-36.5); MEAN CORPUSCULAR VOLUME 95.6 FL (78-98); MEAN PLATELET VOLUME 9.2 FL (7.4-10.4); MONOCYTES # (AUTO) 0.7 X10'3 (0-0.9); MONOCYTES % (AUTO) 9.1 % (2-12); NEUTROPHILS # (AUTO) 5.5 X10'3 (1.8-7.7); NEUTROPHILS % (AUTO) 66.3 % (42-75); PLATELET COUNT 190 X10'3 (140-440); RED BLOOD COUNT 4.68 X10'6 (4.70-6.10); RED CELL DISTRIBUTION WIDTH 14.6 % (11.5-14.5); WHITE BLOOD COUNT 8.2 X10'3 (4.5-11.0)
[2023-08-01 12:57] LABS: PROTHROMBIN TIME 11.2 SECONDS (9.0-12.0)
[2023-08-01 12:58] LABS: ALBUMIN 3.8 G/DL (3.4-5.0); ANION GAP 10 (8-16); BLOOD UREA NITROGEN 21 MG/DL (7-18); BUN/CREATININE RATIO 25.9 (10.0-20.0); CHLORIDE 103 MMOL/L (99-107); CREATININE 0.81 MG/DL (0.60-1.10); GLUCOSE 106 MG/DL (70-104); SODIUM 139 MMOL/L (135-145); TOTAL CARBON DIOXIDE 25.7 MMOL/L (24-32); eCRCL 103 ML/MIN; eGFR > 90 ML/MIN
[2023-08-01] MEDS ORDERED: normal saline 1000ml 1,000 ML IV SCH (14:05)
== END 2023-08-01 18:10 | disposition home or self-care (01) ==
LOC: SSTAY O 11:40
PROVIDERS: ATTEND Internal Medicine Cardiovascular Disease
DX: I25.810 Atherosclerosis of coronary artery bypass graft(s) without angina pectoris (principal); I25.10 Atherosclerotic heart disease of native coronary artery without angina pectoris; I10 Essential (primary) hypertension; E78.5 Hyperlipidemia, unspecified; I25.2 Old myocardial infarction; J44.9 Chronic obstructive pulmonary disease, unspecified; G20 Parkinson's disease; F02.80 Dementia in other diseases classified elsewhere, unspecified severity, without behavioral disturbance, psychotic disturbance, mood disturbance, and anxiety; I35.1 Nonrheumatic aortic (valve) insufficiency; Z79.01 Long term (current) use of anticoagulants; Z79.899 Other long term (current) drug therapy; Z86.718 Personal history of other venous thrombosis and embolism; Z86.711 Personal history of pulmonary embolism; Z95.5 Presence of coronary angioplasty implant and graft; Z95.1 Presence of aortocoronary bypass graft; Z72.89 Other problems related to lifestyle; Z88.2 Allergy status to sulfonamides; Z87.891 Personal history of nicotine dependence; Z82.5 Family history of asthma and other chronic lower respiratory diseases; Z82.49 Family history of ischemic heart disease and other diseases of the circulatory system
CPT/HCPCS: 36415; 76937; 80048; 85025; 85610; 93005; 93459; 93567; 99152; 99153; J1644; J2250; J3010; J3490; J7030; Q9967; A6258; A6449; C1725; C1894